=== PATIENT | male | born 1975 | race Caucasian/White ===

== ENCOUNTER 2018-06-12 04:17 | Emergency (ER) | payer SELFPAY ==
[2018-06-12 04:46] LABS: BASO % 0.3 % (0.0-1.0); EOS # 0.2 10^3/uL (0.0-0.50); EOS % 1.9 % (0.0-3.0); HEMATOCRIT 43.6 % (42.0-52.0); IMMATURE GRANULOCYTE % 0.4 % (0-3.0); LYMPH # 2.1 10^3/uL (1.5-4.5); LYMPH % 18.5 % (24.0-44.0); MEAN CORPUSCULAR HEMOGLOBIN 31.6 pg (27.0-33.0); MEAN CORPUSCULAR HGB CONC 34.4 g/dl (32.0-36.5); MEAN CORPUSCULAR VOLUME 91.8 fl (80.0-96.0); MONO # 0.7 10^3/uL (0.0-0.8); MONO % 6.6 % (0.0-5.0); NEUTROPHILS # 8.1 10^3/uL (1.8-7.7); NEUTROPHILS % 72.3 % (36.0-66.0); PLATELET COUNT, AUTOMATED 227 10^3/uL (150-450); RED BLOOD COUNT 4.75 10^6/uL (4.30-6.10); RED CELL DISTRIBUTION WIDTH 13.8 % (11.5-14.5); WHITE BLOOD COUNT 11.2 10^3/uL (4.0-10.0)
[2018-06-12] MEDS: NS 1,000 ML IV ×3 (04:46→05:53)
[2018-06-12] MEDS: HYDROMORPHONE HCL 0.5 MG/ 0.5 ML SYRINGE (J1170 PER 1) IV ×2 (04:47→05:53)
[2018-06-12 05:07] LABS: ALBUMIN 3.7 GM/DL (3.2-5.2); ALBUMIN/GLOBULIN RATIO 1.16 (1.00-1.93); ALKALINE PHOSPHATASE 64 U/L (45-117); ALT/SGPT 24 U/L (12-78); ANION GAP 8 MEQ/L (8-16); AST/SGOT 22 U/L (7-37); BILIRUBIN,DIRECT < 0.1 MG/DL (0.0-0.2); BILIRUBIN,TOTAL 0.3 MG/DL (0.2-1.0); BLOOD UREA NITROGEN 14 MG/DL (7-18); CALCIUM LEVEL 8.8 MG/DL (8.5-10.1); CARBON DIOXIDE LEVEL 25 MEQ/L (21-32); CHLORIDE LEVEL 109 MEQ/L (98-107); CREATININE FOR GFR 1.49 MG/DL (0.70-1.30); GLOMERULAR FILTRATION RATE 54.5 (>60); GLUCOSE, FASTING 134 MG/DL (70-100); LIPASE 157 U/L (73-393); POTASSIUM SERUM 4.3 MEQ/L (3.5-5.1); SODIUM LEVEL 142 MEQ/L (136-145); TOTAL PROTEIN 6.9 GM/DL (6.4-8.2)
[2018-06-12] MEDS: TAMSULOSIN 0.4 MG CAP PO (05:30)
[2018-06-12 05:56] LABS: APPEARANCE, URINE CLEAR (CLEAR); BACTERIA, URINE AUTO NEGATIVE (NEGATIVE); BILIRUBIN, URINE AUTO NEGATIVE (NEGATIVE); BLOOD, URINE BLOOD 3+ (NEGATIVE); COLOR, URINE YELLOW (YELLOW); GLUCOSE, URINE (UA) AUTO NEGATIVE (NEGATIVE); KETONE, URINE AUTO NEGATIVE (NEGATIVE); LEUKOCYTE ESTERASE, URINE AUTO NEGATIVE (NEGATIVE); MUCUS, URINE SMALL (NEGATIVE); NITRITE, URINE AUTO NEGATIVE (NEGATIVE); PROTEIN, URINE AUTO 1+ mg/dL (NEGATIVE); RBC, URINE AUTO 172 /HPF (0-3); SPECIFIC GRAVITY URINE AUTO 1.014 (1.002-1.035); SQUAMOUS EPITHELIAL CELL UR AU 0 /HPF (0-6); UROBILINOGEN, URINE AUTO 0.2 mg/dL (0.0-2.0); WBC, URINE AUTO 2 /HPF (0-3)
[2018-06-12] MEDS: NORCO 5/325MG TABLET (BULK FOR ED) PO (08:00)
== END 2018-06-12 08:00 | disposition home or self-care (01) ==
LOC: M ED 04:17
DX: N20.1 Calculus of ureter (principal); I10 Essential (primary) hypertension; M19.90 Unspecified osteoarthritis, unspecified site; F17.200 Nicotine dependence, unspecified, uncomplicated; Z79.899 Other long term (current) drug therapy
CPT/HCPCS: J1170

== ENCOUNTER → 2021-08-12 | Outpatient (CLI) | payer SELFPAY ==
[~2021-08-12] MED LIST: ISOVUE-300 61% 50ML VIAL As Ordered ONE; LEVO100T5 PO; LIDOCAINE 1% MDV 20ML VIAL As Ordered ONE; LOSA50TA88 PO; TRAM100T21 PO; TRIAMCINOLONE ACETONIDE SUSP 40 MG/ML VIAL (J3301) As Ordered ONE
--- NOTE | 2021-08-12 15:15 | REP ---
INDICATION: RT SHOULDER OA W/PAIN. COMPARISON: None TECHNIQUE: The procedure was performed by ANASTASIYA Rodrigues, under the direct supervision of Dr. Reilly. The benefits and risks of the procedure were explained to the patient, and an informed consent was obtained. Directly prior to the start of the procedure, a formal time-out was completed in the procedure room. The right glenohumeral joint space was localized using fluoroscopic guidance. The skin was prepped and draped in a sterile fashion. Approximately 5 mL of 1% Lidocaine 10 mg/ml was used as a local anesthetic. Using fluoroscopic guidance, a #22 gauge spinal needle was inserted and advanced into the right glenohumeral joint space. Approximately 1 mL of Isovue 300 was injected to verify placement. Six mL of a solution containing 5 mL 1% lidocaine 10 mg/ml and 1 mL Kenalog 40 milligrams/milliliter was injected into the joint space. The needle was removed and hemostasis was achieved. FINDINGS: The patient tolerated the procedure well and there were no immediate complications. IMPRESSION: 1. Fluoroscopically guided right shoulder pain injection. 0.1 minutes of fluoroscopy time was utilized for this procedure. Some fluoroscopic images are performed with last image hold technology. These images require no additional radiation. <Electronically signed by Rachael Tran > 08/12/21 1228 <Electronically signed by Yonathan Reilly > 08/12/21 [id number]
== END ==
LOC: M RADPRO 10:25
PROVIDERS: ATTEND Physician Assistant
DX: M19.011 Primary osteoarthritis, right shoulder (principal)
CPT/HCPCS: 20610; 77002; J3301; Q9967

== ENCOUNTER 2021-09-13 12:46 | Emergency (ER) | payer SELFPAY ==
[~2021-09-13] VITALS: Ht 185.4 cm; Wt 96.9 kg
[~2021-09-13 12:46] MED LIST changes: -ISOVUE-300 61% 50ML VIAL As Ordered ONE; -LIDOCAINE 1% MDV 20ML VIAL As Ordered ONE; -TRIAMCINOLONE ACETONIDE SUSP 40 MG/ML VIAL (J3301) As Ordered ONE
--- OUTSIDE RECORDS SUMMARY | 2021-09-13 12:53 | CCD | Continuity of Care Document ---
Author Author Lloyd POLLARD ME Organization Unknown Address [address] [place] [address] [place] [address] Phone [phone] Care Team Providers Care Sales Director Name Role Phone Francisco Davies MD [facility] [phone] Problems Description No Information Available Social History Type Date Description Comments Sex Unknown ETOH Use Occasionally consumes alcohol Tobacco Use Start: Unknown Patient is a current smoker, smo kes every day Smoking Status Reviewed: 07/12/21 Patient is a current smoker, smokes every day Allergies, Adverse Reactions, Alerts Active Allergies Criticality Reaction | Severity Comments Date Cefdinir Unable to assess criticality itching 07/12/2021 Inactive Allergies NKDA Unable to assess criticality 07/15/2018 Medications Active Medications SIG Qnty Indications Ordering Provide r Date Tramadol HCL 50mg Tablets four times a day Unknown Levothyroxine-Liothyronine 100mg T ablets Unknown Losartan Potassium 100mg Tablets Unknown Pantoprazole Sodium 40mg Tablets D R 1 by mouth every day Unknown Metoprolol Succinate ER 50mg Tablets ER 24HR twice a day Unknown Immunizations Description No Information Available Vital Signs Date Vital Result Comment 07/12/2021 5:17pm BP Systolic 221 mmHg BP Diastolic 143 mmHg Heart Rate 69 /min Respiratory Rate 20 /min O2 % BldC Oximetry 98 % Body Temperature 98.8 F Weight 210.00 lb Height 73 inches 6'1" BMI (Body Mass Index) 27.7 kg/m2 Pain Level 2 09/24/2019 4:25pm BP Systolic 184 mmHg BP Diastolic 141 mmHg Heart Rate 111 /min O2 % BldC Oximetry 97 % Body Temperature 99.1 F Weight 205.00 lb Height 73 inches 6'1" BMI (Body Mass Index) 27.0 kg/m2 Pain Level 4 Results Description No Information Available Procedures Date Code Description Status 07/12/2021 16175 Office/Outpatient Established Lo w MDM 20-29 Min Completed Medical Devices Description No Information Available Encounters Type Date Location Provider Dx Diagnosis Office Visit 07/12/2021 4:40p Main Office [facility] K12.2 Cellulitis and abscess of mouth I10 Essential (primary) hyperten david Assessments Date Code Description Provider 07/12/2021 K12.2 Cellulitis and abscess of mouth [facility] 07/12/2021 I10 Essential (primary) hypertension [facility] 04/01/2021 Z20.828 Contact with and (alejandro spected) exposure to other viral communicable diseases [facility] Plan of Treatment No Information Available Functional Status Description No Information Available Mental Status Description No Information Available Referrals Description No Information Available
--- OUTSIDE RECORDS SUMMARY | 2021-09-13 12:53 | CCD ---
Author Author [facility] Organization [facility] Address Unknown Phone Unavailable Care Team Providers Care Ship Carpenter Name Role Phone MCELHERAN, PADDY PA Unavailable Unavailable MCELHERAN, PADDY PA Unavailable Unavailable MCELHERAN, PADDY PA Unavailable Unavailable MCELHERAN, PADDY PA Unavailable Unavailable MCELHERAN, PADDY PA Unavailable Unavailable MCELHERAN, PADDY PA Unavailable Unavailable MCELHERAN, PADDY PA Unavailable Unavailable MCELHERAN, PADDY PA Unavailable Unavailable MCELHERAN, PADDY PA Unavailable Unavailable MCELHERAN, PADDY PA Unavailable Unavailable MCELHERAN, PADDY PA Unavailable Unavailable MCELHERAN, PADDY PA Unavailable Unavailable MCELHERAN, PADDY PA Unavailable Unavailable MCELHERAN, PADDY PA Unavailable Unavailable MCELHERAN, PADDY PA Unavailable Unavailable MCELHERAN, PADDY PA Unavailable Unavailable MCELHERAN, PADDY PA Unavailable Unavailable MCELHERAN, PADDY PA Unavailable Unavailable MCELAN, PADDY PA Unavailable Unavailable MCELHERAN, PADDY PA Unavailable Unavailable MCELHERAN, PADDY PA Unavailable Unavailable MCELHERAN, PADDY PA Unavailable Unavailable MCELHERAN, PADDY PA Unavailable Unavailable MCELHERAN, PADDY PA Unavailable Unavailable MCELHERAN, PADDY PA Unavailable Unavailable MCELHERAN, PADDY PA Unavailable Unavailable MCELHERAN, PADDY PA Unavailable Unavailable MCELAN, PADDY PA Unavailable Unavailable MCELHERAN, PADDY PA Unavailable Unavailable MCELHERAN, PADDY PA Unavailable Unavailable MCELHERAN, PADDY PA Unavailable Unavailable MCELHERAN, PADDY PA Unavailable Unavailable MCELHERAN, PADDY PA Unavailable Unavailable MCELHERAN, PADDY PA Unavailable Unavailable MCELHERAN, PADDY PA Unavailable Unavailable MCELHERAN, PADDY PA Unavailable Unavailable MCELHERAN, PADDY PA Unavailable Unavailable MCELHERAN, PADDY PA Unavailable Unavailable MCELHERAN, PADDY PA Unavailable Unavailable MCELHERAN, PADDY PA Unavailable Unavailable MCELHERAN, PADDY PA Unavailable Unavailable MCELHERAN, PADDY PA Unavailable Unavailable MCELHERAN, PADDY PA Unavailable Unavailable MCELHERAN, PADDY PA Unavailable Unavailable MCELHERAN, PADDY PA Unavailable Unavailable MCELHERAN, PADDY PA Unavailable Unavailable MCELHERAN, PADDY PA Unavailable Unavailable MCELHERAN, PADDY PA Unavailable Unavailable MCELHERAN, PADDY PA Unavailable Unavailable MCELHERAN, PADDY PA Unavailable Unavailable MCELHERAN, PADDY PA Unavailable Unavailable MCELHERAN, PADDY PA Unavailable Unavailable MCELHERAN, PADDY PA Unavailable Unavailable MCELHERAN, PADDY PA Unavailable Unavailable MCELHERAN, PADDY PA Unavailable Unavailable MCELHERAN, PADDY PA Unavailable Unavailable MCELHERAN, PADDY PA Unavailable Unavailable MCELHERAN, PADDY PA Unavailable Unavailable Ernie Davies MD Unavailable Unavailable Ernie Davies MD Unavailable Unavailable Ernie Davies MD Unavailable Unavailable Ernie Davies MD Unavailable Unavailable Ernie Davies MD Unavailable Unavailable Ernie Davies MD Unavailable Unavailable Ernie Davies MD Unavailable Unavailable Ernie Davies MD Unavailable Unavailable Ernie Davies MD Unavailable Unavailable Ernie Davies MD Unavailable Unavailable Ernie Davies MD Unavailable Unavailable Ernie Davies MD Unavailable Unavailable Ernie Davies MD Unavailable Unavailable Ernie Davies MD Unavailable Unavailable Ernie Davies MD Unavailable Unavailable Ernie Davies MD Unavailable Unavailable Ernie Davies MD Unavailable Unavailable Ernie Davies MD Unavailable Unavailable Ernie Davies MD Unavailable Unavailable Ernie Davies MD Unavailable Unavailable Ernie Davies MD Unavailable Unavailable Ernie Davies MD Unavailable Unavailable Ernie Davies MD Unavailable Unavailable Ernie Davies MD Unavailable Unavailable Ernie Davies MD Unavailable Unavailable Davies, Felecia Moid MD Unavailable Unavailable Davies, Felecia Moid MD Unavailable Unavailable Davies, Felecia Moid MD Unavailable Unavailable Davies, Felecia Moid MD Unavailable Unavailable DaviesIliaul Moid MD Unavailable Unavailable Davies Felecia Moid MD Unavailable Unavailable Davies Felecia Moid MD Unavailable Unavailable Davies, Felecia Moid MD Unavailable Unavailable Davies, Felecia Moid MD Unavailable Unavailable Davies, Felecia Moid MD Unavailable Unavailable Davies Felecia Moid MD Unavailable Unavailable Davies, Felecia Moid MD Unavailable Unavailable Davies, Felecia Moid MD Unavailable Unavailable Davies, Felecia Moid MD Unavailable Unavailable Davies Felecia Moid MD Unavailable Unavailable Davies, Felecia Moid MD Unavailable Unavailable Daives, Felecia Moid MD Unavailable Unavailable Keke Felecia Moid MD Unavailable Unavailable Ilia Daviesul Moid MD Unavailable Unavailable Davies, Felecia Moid MD Unavailable Unavailable Davies, Felecia Moid MD Unavailable Unavailable Davies, Felecia Moid MD Unavailable Unavailable Davies, Felecia Moid MD Unavailable Unavailable Davies, Felecia Moid MD Unavailable Unavailable Ilia Daviesul Moid MD Unavailable Unavailable Davies, Felecia Moid MD Unavailable Unavailable Davies, Felecia Moid MD Unavailable Unavailable Davies, Felecia Moid MD Unavailable Unavailable Davies, Felecia Moid MD Unavailable Unavailable Felecia Davies Moid MD Unavailable Unavailable Felecia Davies Moid MD Unavailable Unavailable Keke Felecia Moid MD Unavailable Unavailable Davies, Felecia Moid MD Unavailable Unavailable Davies, Felecia Moid MD Unavailable Unavailable Davies, Felecia Moid MD Unavailable Unavailable Ilia Daviesul Moid MD Unavailable Unavailable Davies, Felecia Moid MD Unavailable Unavailable Davies, Felecia Moid MD Unavailable Unavailable Davies, Felecia Moid MD Unavailable Unavailable Davies, Felecia Moid MD Unavailable Unavailable Davies, Felecia Moid MD Unavailable Unavailable Davies, Felecia Moid MD Unavailable Unavailable Davies, Felecia Moid MD Unavailable Unavailable RING, K REMI PA Unavailable Unavailable RING, K REMI PA Unavailable Unavailable RING, K REMI PA Unavailable Unavailable RING, K REMI PA Unavailable Unavailable RING, K REMI PA Unavailable Unavailable RING, K REMI PA Unavailable Unavailable RING, K REMI PA Unavailable Unavailable RING, K REMI PA Unavailable Unavailable RING, K REMI PA Unavailable Unavailable RING, K REMI PA Unavailable Unavailable RING, K REMI PA Unavailable Unavailable RING, K REMI PA Unavailable Unavailable RING, K REMI PA Unavailable Unavailable RING, K REMI PA Unavailable Unavailable RING, K REMI PA Unavailable Unavailable RING, K REMI PA Unavailable Unavailable RING, K REMI PA Unavailable Unavailable RING, K REMI PA Unavailable Unavailable RING, K REMI PA Unavailable Unavailable RING, K REMI PA Unavailable Unavailable RING, K REMI PA Unavailable Unavailable Re-disclosure Warning The records that you are about to access may contain information from federally-assisted alcohol or drug abuse programs. If such information is present, then the following federally mandated warning applies: This information has been disclosed to you from records protected by federal confidentiality rules (42 CFR part 2). The federal rules prohibit you from making any further disclosure of this information unless further disclosure is expressly permitted by the written consent of the person to whom it pertains or as otherwise permitted by 42 CFR part 2. A general authorization for the release of medical or other information is NOT sufficient for this purpose. The Federal rules restrict any use of the information to criminally investigate or prosecute any alcohol or drug abuse patient.The records that you are about to access may contain highly sensitive health information, the redisclosure of which is protected by Article 27-F of the [place] State Public Health law. If you continue you may have access to information: Regarding HIV / AIDS; Provided by facilities licensed or operated by the [facility] Office of Mental Health; or Provided by the [facility] Office for People With Developmental Disabilities. If such information is present, then the following [facility] mandated warning applies: This information has been disclosed to you from confidential records which are protected by state law. State law prohibits you from making any further disclosure of this information without the specific written consent of the person to whom it pertains, or as otherwise permitted by law. Any unauthorized further disclosure in violation of state law may result in a fine or detention sentence or both. A general authorization for the release of medical or other information is NOT sufficient authorization for further disc losure. Allergies and Adverse Reactions Type Description Substance Reaction Status Data Source(s ) Drug Allergy Drug Allergy NKDA [facility] ([facility]) Family History Family Member Name Family Member Gender Family Member Status Date o f Status Description Data Source(s) Unknown Female Problem [facility] ([facility]) Unknown Unknown Encounters Encounter Providers Location Date Indications Data Source(s ) Outpatient Attender: REMI Manning Primary 07/12/2021 04:40:00 PM EDT [facility] ([facility]) Outpatient 04/01/2021 04:57:40 PM EDT [facility] ([facility]) Outpatient Attender: PADDY MAXWELL Physical Therapy 03/25/2021 09:15:00 AM EDT [facility] ([facility]) Outpatient Attender: PADDY MAXWELL Physical Therapy 12/17/2020 03:00:00 PM EST [facility] ([facility]) OFFICE OUTPATIENT VISIT 15 MINUTES Attender: PADDY MAXWELL Physical Therapy 07/29/2020 02:30:00 PM EDT [facility] ([facility]) Outpatient Attender: PADDY PANG PAConsultant: Francicso bill MD 07/25/2020 08:55:00 AM EDT - 07/25/2020 09:55:00 AM EDT [facility] Medications Medication Brand Name Start Date Product Form Dose Route Admi nistrative Instructions Pharmacy Instructions Status Indications Reaction Description Data Source(s) 50 mg 09/08/2021 12:00:00 AM EDT tablet 120 TAKE ONE TABLET BY MOUTH FOUR TIMES A DAY MAXIMUM DAILY DOSE = 4 TAKE ONE TABLET BY MOUTH FOUR TIMES A DA Y MAXIMUM DAILY DOSE = 4 SOLD: 09/08/2021 [facility] 100 mg 09/08/2021 12:00:00 AM EDT tablet extended release 24 hr 30 TAKE ONE TABLET BY MOUTH EVERY DAY TAKE ONE TABLET BY MOUTH EVERY DAY SOLD: 09/08/2021 [facility] 500 mg 09/08/2021 12:00:00 AM EDT capsule 40 TAKE ONE CAPSULE BY MOUTH FOUR TIMES A DAY TAKE ONE CAPSULE BY MOUTH FOUR TIMES A DAY SOLD: 09/08/2021 [facility] 10 mg 09/08/2021 12:00:00 AM EDT tablet 30 TAKE ONE TABLET BY MOUTH AT BEDTIME MAXIMUM DAILY DOSE = 1 TAKE ONE TABLET BY MOUTH AT BEDTIME MAXI MUM DAILY DOSE = 1 SOLD: 09/08/2021 [facility] 100 mg 08/11/2021 12:00:00 AM EDT tablet extended release 24 hr 30 TAKE ONE TABLET BY MOUTH EVERY DAY TAKE ONE TABLET BY MOUTH EVERY DAY SOLD: 08/11/2021 [facility] 50 mg 08/10/2021 12:00:00 AM EDT tablet 120 TAKE ONE TABLET BY MOUTH FOUR TIMES A DAY MAXIMUM DAILY DOSE = 4 TABLETS TAKE ONE TABLET BY MOUTH FOUR TIMES A DAY MAXIMUM DAILY DOSE = 4 TABLETS SOLD: 08/10/2021 [facility] 100 mg 08/10/2021 12:00:00 AM EDT tablet 90 TAKE ONE TABLET BY MOUTH EVERY DAY TAKE ONE TABLET BY MOUTH EVERY DAY SOLD: 08/10/2021 [facility] 10 mg 08/10/2021 12:00:00 AM EDT tablet 30 TAKE ONE TABLET BY MOUTH AT BEDTIME MAXIMUM DAILY DOSE = 1 TABLET TAKE ONE TABLET BY MOUTH AT BEDTIME MAXIMUM DAILY DOSE = 1 TABLET SOLD: 08/10/2021 [facility] 500 mg 08/10/2021 12:00:00 AM EDT capsule 40 TAKE ONE CAPSULE BY MOUTH FOUR TIMES A DAY TAKE ONE CAPSULE BY MOUTH FOUR TIMES A DAY SOLD: 08/10/2021 [facility] 875 mg 07/13/2021 12:00:00 AM EDT tablet 20 TAKE ONE TABLET BY MOUTH EVERY 12 HOURS FOR 10 DAYS TAKE ONE TABLET BY MOUTH EVERY 12 HOURS FOR 10 DAYS SO LD: 07/13/2021 [facility] 125 mcg 07/08/2021 12:00:00 AM EDT tablet 90 TAKE ONE TABLET BY MOUTH EVERY DAY TAKE ONE TABLET BY MOUTH EVERY DAY SOLD: 07/10/2021 [facility] 10 mg 07/08/2021 12:00:00 AM EDT tablet 30 TAKE ONE TABLET BY MOUTH EVERY DAY AT BEDTIME MAXIMUM DAILY DOSE = 1 TAKE ONE TABLET BY MOUTH EVERY DAY AT BEDTIME MAXIMUM DAILY DOSE = 1 SOLD: 07/10/2021 [facility] 50 mg 07/08/2021 12:00:00 AM EDT tablet 120 TAKE ONE TABLET BY MOUTH FOUR TIMES A DAY MAXIMUM DAILY DOSE = 4 TAKE ONE TABLET BY MOUTH FOUR TIMES A DA Y MAXIMUM DAILY DOSE = 4 SOLD: 07/10/2021 [facility] 100 mg 07/08/2021 12:00:00 AM EDT tablet 90 TAKE ONE TABLET BY MOUTH EVERY DAY TAKE ONE TABLET BY MOUTH EVERY DAY SOLD: 07/10/2021 [facility] 12.5 mg 06/08/2021 12:00:00 AM EDT tablet 90 TAKE ONE TABLET BY MOUTH THREE TIMES A DAY TAKE ONE TABLET BY MOUTH THREE TIMES A DAY SOLD: 06/08/2021 [facility] 50 mg 06/08/2021 12:00:00 AM EDT tablet 120 TAKE ONE TABLET BY MOUTH FOUR TIMES A DAY MAXIMUM DAILY DOSE = 4 TAKE ONE TABLET BY MOUTH FOUR TIMES A DA Y MAXIMUM DAILY DOSE = 4 SOLD: 06/08/2021 [facility] 10 mg 06/08/2021 12:00:00 AM EDT tablet 30 TAKE ONE TABLET BY MOUTH AT BEDTIME MAXIMUM DAILY DOSE = 1 TAKE ONE TABLET BY MOUTH AT BEDTIME MAXI MUM DAILY DOSE = 1 SOLD: 06/08/2021 [facility] 50 mg 05/09/2021 12:00:00 AM EDT tablet 120 TAKE ONE TABLET BY MOUTH FOUR TIMES A DAY MAXIMUM DAILY DOSE = 4 TAKE ONE TABLET BY MOUTH FOUR TIMES A DA Y MAXIMUM DAILY DOSE = 4 SOLD: 05/09/2021 [facility] 10 mg 05/08/2021 12:00:00 AM EDT tablet 30 TAKE 1 TABLET BY MOUTH AT BEDTIME MAXIMUM DAILY DOSE = 1` TAKE 1 TABLET BY MOUTH AT BEDTIME MAXIMU M DAILY DOSE = 1` SOLD: 05/09/2021 [facility] 12.5 mg 05/08/2021 12:00:00 AM EDT tablet 90 TAKE ONE TABLET BY MOUTH THREE TIMES A DAY TAKE ONE TABLET BY MOUTH THREE TIMES A DAY SOLD: 05/09/2021 [facility] 10 mg 04/13/2021 12:00:00 AM EDT tablet 27 TAKE 1 TABLET BY MOUTH AT BEDTIME MAXIMUM DAILY DOSE = 1 TAKE 1 TABLET BY MOUTH AT BEDTIME MAXIMUM DAILY DOSE = 1 SOLD: 04/13/2021 [facility] 50 mg 04/09/2021 12:00:00 AM EDT tablet 108 TAKE ONE TABLET BY MOUTH FOUR TIMES A DAY, MAXIMUM DAILY DOSE = 4 TAKE ONE TABLET BY MOUTH FOUR TIMES A DA Y, MAXIMUM DAILY DOSE = 4 SOLD: 04/13/2021 [facility] 10 mg 04/02/2021 12:00:00 AM EDT tablet 3 TAKE ONE TABLET BY MOUTH AT BEDTIME, MAXIMUM DAILY DOSE = 1 TAKE ONE TABLET BY MOUTH AT BEDTIME, MAX IMUM DAILY DOSE = 1 SOLD: 04/02/[address] [facility] 50 mg 04/02/2021 12:00:00 AM EDT tablet 12 TAKE ONE TABLET BY MOUTH FOUR TIMES A DAY, MAXIMUM DAILY DOSE = 4 TAKE ONE TABLET BY MOUTH FOUR TIMES A DA Y, MAXIMUM DAILY DOSE = 4 SOLD: 04/02/2021 [facility] 100 mg 04/02/2021 12:00:00 AM EDT tablet 90 TAKE ONE TABLET BY MOUTH EVERY DAY TAKE ONE TABLET BY MOUTH EVERY DAY SOLD: 04/02/2021 [facility] 10 mg 03/11/2021 12:00:00 AM EDT tablet 30 TAKE ONE TABLET BY MOUTH EVERY DAY AT BEDTIME MAXIMUM DAILY DOSE = 1 TAKE ONE TABLET BY MOUTH EVERY DAY AT BEDTIME MAXIMUM DAILY DOSE = 1 SOLD: 03/11/2021 [facility] 50 mg 03/11/2021 12:00:00 AM EDT tablet 120 TAKE ONE TABLET BY MOUTH FOUR TIMES A DAY MAXIMUM DAILY DOSE = 4 TAKE ONE TABLET BY MOUTH FOUR TIMES A DA Y MAXIMUM DAILY DOSE = 4 SOLD: 03/11/2021 [facility] 10 mg 02/10/2021 12:00:00 AM EDT tablet 30 TAKE ONE TABLET BY MOUTH AT BEDTIME MAXIMUM DAILY DOSE = 1 TABLET TAKE ONE TABLET BY MOUTH AT BEDTIME MAXIMUM DAILY DOSE = 1 TABLET SOLD: 02/10/2021 [facility] 50 mg 02/10/2021 12:00:00 AM EDT tablet 120 TAKE ONE TABLET BY MOUTH FOUR TIMES A DAY MAXIMUM DAILY DOSE = 4 TAKE ONE TABLET BY MOUTH FOUR TIMES A DA Y MAXIMUM DAILY DOSE = 4 SOLD: 02/10/2021 [facility] 25 mg 02/09/2021 12:00:00 AM EDT tablet 180 TAKE ONE TABLET BY MOUTH TWICE A DAY TAKE ONE TABLET BY MOUTH TWICE A DAY SOLD: 02/09/2021 [facility] pantoprazole 40 MG Delayed Release Oral Tablet PANTOPRAZOLE SODIUM 02/09/2021 12:00:00 AM EDT tablet,delayed release (DR/EC) 90 T HEIDI ONE TABLET BY MOUTH EVERY DAY TAKE ONE TABLET BY MOUTH EVERY DAY SOLD: 02/09/2021 [facility] 5 mg 01/26/2021 12:00:00 AM EDT tablet 10 TAKE ONE TABLET BY MOUTH AT BEDTIME MAXIMUM DAILY DOSE = 1 TAKE ONE TABLET BY MOUTH AT BEDTIME MAXI MUM DAILY DOSE = 1 SOLD: 01/26/2021 [facility] 50 mg 01/12/2021 12:00:00 AM EST tablet 120 TAKE ONE TABLET BY MOUTH FOUR TIMES A DAY MAXIMUM DAILY DOSE = 4 TAKE ONE TABLET BY MOUTH FOUR TIMES A DA Y MAXIMUM DAILY DOSE = 4 SOLD: 01/12/2021 [facility] 100 mg 01/12/2021 12:00:00 AM EST tablet 90 TAKE ONE TABLET BY MOUTH EVERY DAY TAKE ONE TABLET BY MOUTH EVERY DAY SOLD: 01/12/2021 [facility] pantoprazole 40 MG Delayed Release Oral Tablet PANTOPRAZOLE SODIUM 01/12/2021 12:00:00 AM EST tablet,delayed release (DR/EC) 90 T HEIDI ONE TABLET BY MOUTH EVERY DAY TAKE ONE TABLET BY MOUTH EVERY DAY SOLD: 01/12/2021 [facility] 50 mg 12/12/2020 12:00:00 AM EST tablet 120 TAKE ONE TABLET BY MOUTH FOUR TIMES A DAY MAXIMUM DAILY DOSE = 4 TABLETS TAKE ONE TABLET BY MOUTH FOUR TIMES A DAY MAXIMUM DAILY DOSE = 4 TABLETS SOLD: 12/14/2020 [facility] 50 mg 11/13/2020 12:00:00 AM EST tablet 120 TAKE ONE TABLET BY MOUTH FOUR TIMES DAY MAXIMUM DAILY DOSE =4 TABLETS TAKE ONE TABLET BY MOUTH FOUR TIMES DAY MAXIMUM DAILY DOSE =4 TABLETS SOLD: 11/13/2020 [facility] pantoprazole 40 MG Delayed Release Oral Tablet PANTOPRAZOLE SODIUM 11/13/2020 12:00:00 AM EST tablet,delayed release (DR/EC) 90 T HEIDI ONE TABLET BY MOUTH DAILY TAKE ONE TABLET BY MOUTH DAILY SOLD: 11/13/2020 [facility] 20 mg 11/13/2020 12:00:00 AM EST tablet 90 TAKE ONE TABLET BY MOUTH DAILY TAKE ONE TABLET BY MOUTH DAILY SOLD: 11/13/2020 [facility] 125 mcg 11/13/2020 12:00:00 AM EST tablet 90 TAKE ONE TABLET BY MOUTH DAILY TAKE ONE TABLET BY MOUTH DAILY SOLD: 11/13/2020 [facility] 100 mg 10/13/2020 12:00:00 AM EST tablet 90 TAKE ONE TABLET BY MOUTH EVERY DAY TAKE ONE TABLET BY MOUTH EVERY DAY SOLD: 10/13/2020 [facility] 50 mg 10/13/2020 12:00:00 AM EST tablet 120 TAKE ONE TABLET BY MOUTH FOUR TIMES A DAY MAXIMUM DAILY DOSE = 4 TAKE ONE TABLET BY MOUTH FOUR TIMES A DA Y MAXIMUM DAILY DOSE = 4 SOLD: 10/13/2020 [facility] pantoprazole 40 MG Delayed Release Oral Tablet PANTOPRAZOLE SODIUM 10/13/2020 12:00:00 AM EST tablet,delayed release (DR/EC) 90 T HEIDI ONE TABLET BY MOUTH EVERY DAY TAKE ONE TABLET BY MOUTH EVERY DAY SOLD: 10/13/2020 [facility] 125 mcg 10/13/2020 12:00:00 AM EST tablet 90 TAKE ONE TABLET BY MOUTH EVERY DAY TAKE ONE TABLET BY MOUTH EVERY DAY SOLD: 10/13/2020 [facility] 50 mg 09/08/2020 12:00:00 AM EDT tablet 120 TAKE ONE TABLET BY MOUTH FOUR TIMES A DAY MAXIMUM DAILY DOSE = 4 TAKE ONE TABLET BY MOUTH FOUR TIMES A DA Y MAXIMUM DAILY DOSE = 4 SOLD: 09/08/2020 [facility] 125 mcg 09/08/2020 12:00:00 AM EDT tablet 90 TAKE ONE TABLET BY MOUTH EVERY DAY TAKE ONE TABLET BY MOUTH EVERY DAY SOLD: 09/08/2020 [facility] 100 mg 09/08/2020 12:00:00 AM EDT tablet 90 TAKE ONE TABLET BY MOUTH EVERY DAY TAKE ONE TABLET BY MOUTH EVERY DAY SOLD: 09/08/2020 [facility] 50 mg 08/12/2020 12:00:00 AM EDT tablet 120 TAKE ONE TABLET BY MOUTH FOUR TIMES A DAY MAXIMUM DAILY DOSE = 4 TAKE ONE TABLET BY MOUTH FOUR TIMES A DA Y MAXIMUM DAILY DOSE = 4 SOLD: 08/14/2020 [facility] 25 mg 08/11/2020 12:00:00 AM EDT tablet 180 TAKE ONE TABLET BY MOUTH TWICE A DAY TAKE ONE TABLET BY MOUTH TWICE A DAY SOLD: 08/14/2020 [facility] 20 mg 08/11/2020 12:00:00 AM EDT tablet 90 TAKE ONE TABLET BY MOUTH EVERY DAY TAKE ONE TABLET BY MOUTH EVERY DAY SOLD: 08/14/2020 [facility] 40 mg 07/14/2020 12:00:00 AM EDT tablet,delayed release (DR/EC) 90 TAKE ONE TABLET BY MOUTH EVERY DAY TAKE ONE TABLET BY MOUTH EVERY DAY SOLD: 07/14/2020 [facility] 50 mg 07/14/2020 12:00:00 AM EDT tablet 120 TAKE ONE TABLET BY MOUTH FOUR TIMES A DAY MAXIMUM DAILY DOSE = 4 TAKE ONE TABLET BY MOUTH FOUR TIMES A DA Y MAXIMUM DAILY DOSE = 4 SOLD: 07/14/2020 [facility] Insurance Providers Payer name Policy type / Coverage type Policy ID Covered republican ID Covered republican's relationship to nicole Policy Nicole Plan Information SELF PAY ONLY [id number] SELF PAY O UNAVAILABLE [id number] S UNAVAILA BLE O UNAVAILABLE UNAVAILA BLE Problems, Conditions, and Diagnoses Code Display Name Description Problem Type Effective Dates Data Source(s) M4317 Spondylolisthesis, lumbosacral region Sp ondylolisthesis, lumbosacral region Diagnosis 07/25/2020 08:55:00 AM EDT [facility] 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, lumbar region Other intervertebral disc displacement, lumbar region Diagnosis 07/25/2020 08:55:00 AM EDT [facility] M5136 Other intervertebral disc degeneration, lumbar region Other intervertebral disc degeneration, lumbar region Diagnosis 07/25/2020 08:55:00 AM EDT [facility] Surgeries/Procedures Procedure Description Date Indications Data Source(s) OFFICE OUTPATIENT VISIT 15 MINUTES 07/12/2021 12:00:00 AM EDT [facility] ([facility]) ARTHROCENTESIS ASPIR&/INJECTION MAJOR JT/BURSA 021 12:00:00 AM EDT [facility] ([facility]) ARTHROCENTESIS ASPIR&/INJECTION MAJOR JT/BURSA 021 12:00:00 AM EST [facility] ([facility]) Results ID Date Data Source [id number] 04/01/2021 12:00:00 AM EDT [facility] Name Value Range Interpretation Code Description Data Sandee rce(s) Supporting Document(s) SARS-CoV2 Rapid Antigen Negative [facility] This lab was reported by [facility]. ID Date Data Source [id number] 09/15/2020 02:10:00 PM EST [facility] Name Value Range Interpretation Code Description Data Sandee rce(s) Supporting Document(s) SARS-COV-2 RNA RESP QL GEOVANY+PROBE [facility] This lab was ordered by [facility] and reported by [facility]. ID Date Data Source [id number] 07/28/2020 09:23:00 AM EDT [facility] [address] [place] [address] PHONE: [phone] FAX: [phone] Name .................. : BERENICE DAVID Acct Number.................. : [id number] ROOM. ................. : MR Number ................... : [id number] Stay type ............. : O/P Discharge Date......... ... : 07/25/20 Admit Date ....... .. : 07/25/20 Admit Phys .................... : POLY Date of ....... : 1975 Family Phys ................... : KEKE ELLISAmos Phone .................. : [phone] Age ................................ : 44 Film# .................. .:[id number] Sex ................................. : M Unsigned transcriptions are preliminary reports and do not represent a medical or legal document MRI LUMBAR SPINE W/O CONTRAST [id number] COMPLETE:07/25/20 12:11 [facility] [id number] (SPINE PROC REASON: R/O HNP AND STENOSIS MRI OF THE LUMBAR SPINE WITHOUT CONTRAST: FINDINGS: No fracture or dislocation is identified. There is some moderate to severe spurring present at L4 with mild spurring at the rest of the lumbar spine. Decreased T2 signal intensity is noted at the discs from disc dessication. There is mild disc space narrowing at T12- L1. The conus medullaris is unremarkable, terminating at L1. At L3-4, there is some mild to moderate posterior spurring. A small disc bulge is present without canal stenosis. There is mild bilateral neuroforaminal narrowing due to spurring and disc disease. At L4-5, there is mild posterior spurring. There is a small disc bulge present. There is some minimal attenuation of the central AP dimension of the canal without delia canal stenosis. A small focus of increased T2 signal intensity is noted at the disc posteriorly on the left side from an annular tear. There is mild to moderate bilateral neural foraminal narrowing with disc spurring and disc disease. At L5-S1, there is a small disc bulge with an associated central disc protrusion. There is no canal stenosis. There is some minimal neuroforaminal narrowing on the right side due to disc disease and slight spurring. Additionally, there is retrolisthesis of L5 on S1 by about 0.5 cm. Small bilateral facet joint effusions are seen at L1-2 through L5-S1. There is some moderate spurring at the facet joint on the left side and mild on the right side at L4-5 with mild spurring at the facet joints bilaterally at L5-S1. IMPRESSION: No fracture/dislocation. Mild to moderate degenerative disease of the lumbar spine. Disc bulges at L3-4 and L4-5 with bulge and protrusion at L5- S1. No canal stenosis. Neuroforaminal narrowing, as described. Mild retrolisthesis of L5 on S1. Electronically Reviewed and Signed By Page 1 of 2 [facility] [address] [place] [address] PHONE: [phone] FAX: [phone] Name .................. : BERENCIE DAVID Acct Number.................. : [id number] ROOM. ................. : MR Number ................... : [id number] Stay type ............. : O/P Discharge Date......... ... : 07/25/20 Admit Date ......... : 07/25/20 Admit Phys ............ ........ : POLY Date of ....... : 1975 Family Phys ................... : KEKE MYERS Phone .................. : [phone] Age ................................ : 44 Film# .................. .:[id number] Sex ................................. : M Unsigned transcriptions are preliminary reports and do not represent a medical or legal document MRI LUMBAR SPINE W/O CONTRAST [id number] COMPLETE:07/25/20 12:11 [facility] [id number] (SPINE PROC REASON: R/O HNP AND STENOSIS Raheem Reyes MD , 07/28/20 09:23, TDS Transcribe Initials: DZ , Transcribe Date: 07/26/20 01:45, Dictation Date: Copy for: POLY THOMASON via fax Copy for: 710 MED REC Page 2 of 2 Name Value Range Interpretation Code Description Data Sandee rce(s) Supporting Document(s) Procedure Social History No Information Vital Signs ID Date Data Source UNK Name Value Range Interpretation Code Description Data Source(s) Heart rate 69 /min 69 /min [facility] ([facility]) Respiratory rate 20 /min 20 /min [facility] ( [facility]) Oxygen saturation in Arterial blood by Pulse oximetry 98 % 98 % [facility] ([facility]) Body temperature 98.8 [degF] 98.8 [degF] [facility] ([facility], [facility]) Body weight 210.00 [lb_av] 210.00 [lb_av] MEDEN T ([facility], [facility]) Body height 73 [in_i] 73 [in_i] [facility] ([facility]) 6'1" Body mass index (BMI) [Ratio] 27.7 kg/m2 27.7 k g/m2 [facility] ([facility], [facility]) Systolic blood pressure 221 mm[Hg] 221 mm[Hg] [facility]) Diastolic blood pressure 143 mm[Hg] 143 mm[Hg] [facility] ([facility], [facility]) Body temperature 96.1 [degF] 96.1 [degF] [facility] ([facility] )
[2021-09-13] MEDS ORDERED: ADVI200C8 PO (12:55)
[2021-09-13] MEDS ORDERED: ZOLP10TA2 (12:55)
[2021-09-13] MEDS ORDERED: AMOX500C (12:55)
[2021-09-13] MEDS ORDERED: METO1TAB33 (12:55)
--- NOTE | 2021-09-13 13:57 | REP ---
INDICATION: pain,decreased ROM/hx of pain injectins. COMPARISON: None. TECHNIQUE: Three views of the right shoulder were performed. FINDINGS: The acromioclavicular and glenohumeral relationships are within normal limits. There is no acute fracture or destructive osseous lesion. IMPRESSION: No acute osseous abnormality. <Electronically signed by Raad Michaels > 09/13/21 1839
--- OUTSIDE RECORDS SUMMARY | 2021-09-13 15:19 | CCD ---
Author Author [facility] Organization [facility] Address Unknown Phone Unavailable Care Team Providers Care Steel Finisher Name Role Phone MCELHERAN, PADDY PA Unavailable [...] Unavailable Unavailable Ernie Davies MD Unavailable Unavailable Felecia Davies Moid Unavailable Unavailable DaviesFelecia Moid MD Unavailable Unavailable DaviesIliaul Moid MD Unavailable Unavailable DaviesFelecia Moid Unavailable Unavailable DaviesFelecia Moid MD Unavailable Unavailable DaviesFelecia Moid MD Unavailable Unavailable Davies Felecia Moid MD Unavailable Unavailable Davies Felecia Moid MD Unavailable Unavailable Davies, Felecia Moid MD Unavailable Unavailable Davies Felecia Moid MD Unavailable Unavailable Davies, Felecia Moid MD Unavailable Unavailable DaviesIliaul Moid MD Unavailable Unavailable Davies, Felecia Moid MD Unavailable Unavailable DaviesIliaul Moid MD Unavailable Unavailable Davies, Felecia Moid MD Unavailable Unavailable Felecia Davies Moid MD Unavailable Unavailable Felecia Davies Moid MD Unavailable Unavailable Felecia Davies Moid MD Unavailable Unavailable Felecia Davies Moid MD Unavailable Unavailable Felecia Davies Moid MD Unavailable Unavailable Davies, Felecia Moid MD Unavailable Unavailable Felecia Davies Moid MD Unavailable Unavailable Felecia Davies Moid MD Unavailable Unavailable Felecia Davies Moid MD Unavailable Unavailable Davies, Felecia Moid MD Unavailable Unavailable Keke Felecia Moid MD Unavailable Unavailable Davies, Felecia Moid MD Unavailable Unavailable Felecia Davies Moid MD Unavailable Unavailable Felecia Davies Moid MD Unavailable Unavailable Felecia Davies Moid MD Unavailable Unavailable Keke Felecia Moid MD Unavailable Unavailable Felecia Davies Moid MD Unavailable Unavailable Ilia Daviesul Moid MD Unavailable Unavailable Felecia Davies Moid MD Unavailable Unavailable Felecia Davies Moid MD Unavailable Unavailable DaviesIliaul Moid MD Unavailable Unavailable DaviesIliaul Moid MD Unavailable Unavailable Davies, Felecia Moid [...] is protected by Article 27-F of the [facility] Public Health law. If you continue you may have access to information: Regarding HIV / AIDS; Provided by facilities licensed or operated by the [facility] Office of Mental Health; or Provided by the [facility] Office for People With Developmental Disabilities. If such information is present, then the following [facility] mandated warning applies: This information has been [...] law may result in a fine or assisted sentence or both. A general authorization for the release of medical or other information is NOT sufficient authorization for further disc losure. Allergies and Adverse Reactions Type Description Substance Reaction Status Data Source(s ) Drug Allergy Drug Allergy NKDA [facility] ([facility]) Family History Family Member Name Family Member Gender Family Member Status Date o f Status Description Data Source(s) Unknown Female Problem [facility] ([facility]) Unknown Unknown Encounters Encounter Providers Location Date Indications Data Source(s ) Outpatient Attender: REMI Manning Primary 07/12/2021 04:40:00 PM EDT [facility] ([facility]) Outpatient 04/01/2021 04:57:40 PM EDT [facility] ([facility]) Outpatient Attender: PADDY MAXWELL Physical Therapy 03/25/2021 09:15:00 AM EDT [facility] ([facility]) Outpatient Attender: PADDY MAXWELL Physical Therapy 12/17/2020 03:00:00 PM EST [facility] ([facility]) OFFICE OUTPATIENT VISIT 15 MINUTES Attender: PADDY MAXWELL Physical Therapy 07/29/2020 02:30:00 PM EDT [facility] ([facility]) Outpatient Attender: PADDY PANG PAConsultant: Francisco bill MD 07/25/2020 08:55:00 AM EDT - 07/25/2020 09:55:00 AM EDT [facility] Medications Medication Brand Name Start Date Product [...] DAILY DOSE = 4 SOLD: 07/14/2020 [facility] Insurance Providers Payer name Policy type / Coverage type Policy ID Covered green party ID Covered green party's relationship to nicole Policy Nicole Plan Information SELF PAY ONLY [id number] SELF PAY O UNAVAILABLE [id number] S UNAVAILA BLE O UNAVAILABLE UNAVAILA BLE Problems, Conditions, and Diagnoses Code Display Name Description Problem Type Effective Dates Data Source(s) M4317 Spondylolisthesis, lumbosacral region Sp ondylolisthesis, lumbosacral region Diagnosis 07/25/2020 08:55:00 AM EDT [facility] 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, lumbar region Other intervertebral disc displacement, lumbar region Diagnosis 07/25/2020 08:55:00 AM EDT [facility] M5136 Other intervertebral disc degeneration, lumbar region Other intervertebral disc degeneration, lumbar region Diagnosis 07/25/2020 08:55:00 AM EDT [facility] Surgeries/Procedures Procedure Description Date Indications Data Source(s) OFFICE OUTPATIENT VISIT 15 MINUTES 07/12/2021 12:00:00 AM EDT [facility] ([facility]) ARTHROCENTESIS ASPIR&/INJECTION MAJOR JT/BURSA 021 12:00:00 AM EDT [facility] ([facility]) ARTHROCENTESIS ASPIR&/INJECTION MAJOR JT/BURSA 021 12:00:00 AM EST [facility] ([facility]) Results ID Date Data Source [id number] 04/01/2021 12:00:00 AM EDT [facility] Name Value Range Interpretation Code Description Data Sandee rce(s) Supporting Document(s) SARS-CoV2 Rapid Antigen Negative [facility] This lab was reported by [facility]. ID Date Data Source [id number] 09/15/2020 02:10:00 PM EST [facility] Name Value Range Interpretation Code Description Data Sandee rce(s) Supporting Document(s) SARS-COV-2 RNA RESP QL [facility] This lab was ordered by [facility] and reported by [facility]. ID Date Data Source [id number] 07/28/2020 09:23:00 AM EDT [facility] [address] [place] [address] PHONE: [phone] FAX: [phone] Name .................. : BERENICE DAVID Acct Number.................. : [id number] ROOM. ................. : MR Number ................... : [id number] Stay type ............. : O/P Discharge Date......... ... : 07/25/20 Admit Date ....... .. : 07/25/20 Admit Phys .................... : POLY Date of ....... : 1975 Family Phys ................... : DAVIES FRANCISCO Phone .................. : [phone] Age ................................ : 44 Film# .................. .:[id number] Sex ................................. : M Unsigned transcriptions are preliminary reports and do not represent a medical or legal document MRI LUMBAR SPINE W/O CONTRAST [id number] COMPLETE:07/25/20 12:11 [facility] 19498 (SPINE PROC REASON: R/O HNP AND STENOSIS [...] and Signed By Page 1 of 2 [facility] [address] [place] [address]. [place] [address] PHONE: [phone] FAX: [phone] Name .................. : BERENICE DAVID Acct Number.................. : [id number] ROOM. ................. : MR Number ................... : [id number] Stay type ............. : O/P Discharge Date......... ... : 07/25/20 Admit Date ......... : 07/25/20 Admit Phys ............ ........ : POLY Date of ....... : 1975 Family Phys ................... : KEKE MYERS Phone .................. : [phone] Age ................................ : 44 Film# .................. .:[id number] Sex ................................. : M Unsigned transcriptions are preliminary reports and do not represent a medical or legal document MRI LUMBAR SPINE W/O CONTRAST [id number] COMPLETE:07/25/20 12:11 [facility] 23669 (SPINE PROC REASON: R/O HNP AND STENOSIS [...] rate 20 /min 20 /min [facility] ( [facility]) Oxygen saturation in Arterial blood by Pulse oximetry 98 % 98 % [facility] ([facility] Body temperature 98.8 [degF] 98.8 [degF] [facility] ([facility] Body weight 210.00 [lb_av] 210.00 [lb_av] MEDEN T ([facility], [facility]) Body height 73 [in_i] 73 [in_i] [facility]) 6'1" Body mass index (BMI) [Ratio] 27.7 kg/m2 27.7 k g/m2 [facility] ([facility], [facility]) Systolic blood pressure 221 mm[Hg] 221 mm[Hg] [facility]) Diastolic blood pressure 143 mm[Hg] 143 mm[Hg] [facility] ([facility], [facility]) Body temperature 96.1 [degF] 96.1 [degF] [facility] ([facility] )
[2021-09-13] MEDS ORDERED: KETOROLAC 60MG 2ML VIAL IM ONE (17:05)
[2021-09-13 17:50] LABS: BASO % 0.3 % (0.0-1.0); EOS # 0.4 10^3/uL (0.0-0.5); HEMATOCRIT 44.7 % (42.0-52.0); HEMOGLOBIN 14.9 g/dl (13.5-17.5); LYMPH # 2.3 10^3/uL (1.5-5.0); LYMPH % 24.1 % (24.0-44.0); MEAN CORPUSCULAR HEMOGLOBIN 31.7 pg (27.0-33.0); MEAN CORPUSCULAR HGB CONC 33.3 g/dl (32.0-36.5); MEAN CORPUSCULAR VOLUME 95.1 fl (80.0-96.0); MONO # 0.8 10^3/uL (0.0-0.8); MONO % 8.7 % (2.0-8.0); NEUTROPHILS % 62.4 % (36.0-66.0); PLATELET COUNT, AUTOMATED 272 10^3/uL (150-450); WHITE BLOOD COUNT 9.6 10^3/uL (4.0-10.0)
[2021-09-13 17:57] VITALS: BP 180/110
[2021-09-13] MEDS ORDERED: METOPROLOL SUCC (TopROL XL) 100MG *XL* TAB PO ONE (18:00)
[2021-09-13] MEDS ORDERED: LOSARTAN 50MG TABLET PO ONE (18:00)
[2021-09-13 18:11] LABS: BLOOD UREA NITROGEN 16 MG/DL (7-18); C REACTIVE PROTEIN QUANTITATIV 1.31 MG/DL (0.00-0.30); CALCIUM LEVEL 9.1 MG/DL (8.5-10.1); CARBON DIOXIDE LEVEL 27 MEQ/L (21-32); CHLORIDE LEVEL 107 MEQ/L (98-107); CREATININE FOR GFR 1.34 MG/DL (0.70-1.30); ERYTHROCYTE SEDIMENTATION RATE 9 mm/hr (0-15); GLOMERULAR FILTRATION RATE > 60.0 (>60); GLUCOSE, FASTING 93 MG/DL (70-100); POTASSIUM SERUM 4.4 MEQ/L (3.5-5.1); SODIUM LEVEL 137 MEQ/L (136-145)
--- NOTE | 2021-09-13 18:26 | REP ---
INDICATION: swelling and severe pain over deltoid insertion. COMPARISON: None. TECHNIQUE: Real-time sonographic evaluation of the subdeltoid region. FINDINGS: There is an anechoic oval-shaped structure superficial to the humeral head in the region of the subdeltoid bursa. This measures approximately 7 x 8 x 1 cm. IMPRESSION: Findings consistent with subdeltoid bursitis. <Electronically signed by Raad Michaels > 09/13/21 3079
[2021-09-13] MEDS ORDERED: methylPREDNISolone 125MG 2ML VIAL IM ONE (19:00)
[2021-09-13] MEDS ORDERED: PRED20TA PO (19:36)
[2021-09-13 19:42] VITALS: BP 165/100
[2021-09-15 18:11] LABS: Lyme Disease IgG/IgM Antibodie <0.91 ISR (0.00-0.90); Lyme Disease IgM Ab Quantitati <0.80 index (0.00-0.79)
== END 2021-09-13 19:50 | disposition home or self-care (01) ==
LOC: M ED 12:46
DX: M75.51 Bursitis of right shoulder (principal); I10 Essential (primary) hypertension; M19.011 Primary osteoarthritis, right shoulder; F17.200 Nicotine dependence, unspecified, uncomplicated; Z79.899 Other long term (current) drug therapy
CPT/HCPCS: 73030; 76882; 80048; 85025; 85652; 86140; 86617; 96372; 99283; J1885; J2930

== ENCOUNTER 2023-07-18 15:41 | Emergency (ER) | payer SELFPAY ==
[~2023-07-18] VITALS: Ht 185.4 cm; Wt 99.8 kg
[~2023-07-18 15:41] MED LIST changes: +ADVI200C8 PO; +AMOX500C; +LOSA50TA28 PO; -LOSA50TA88 PO; +METO1TAB33; +PRED20TA PO; +ZOLP10TA2
[2023-07-18 15:42] VITALS: BP 184/111; TEMP 98.2
[2023-07-18] MEDS ORDERED: TRAZ-257 (15:53)
[2023-07-18] MEDS ORDERED: METO1TAB7 (15:53)
[2023-07-18] MEDS ORDERED: PANT40TA29 (15:53)
[2023-07-18] MEDS ORDERED: DOXA1TAB41 (15:53)
[2023-07-18] MEDS ORDERED: LISI10TA22 (15:53)
[2023-07-18] MEDS ORDERED: PERCOCET 5MG/325MG TAB PO ONE (16:00)
[2023-07-18 16:35] VITALS: O2SAT 100
== END 2023-07-18 18:03 | disposition home or self-care (01) ==
LOC: M ED 15:41
DX: S63.045A Dislocation of carpometacarpal joint of left thumb, initial encounter (principal); K21.9 Gastro-esophageal reflux disease without esophagitis; F17.200 Nicotine dependence, unspecified, uncomplicated; I10 Essential (primary) hypertension; E03.9 Hypothyroidism, unspecified; Z79.811 Long term (current) use of aromatase inhibitors; Z79.1 Long term (current) use of non-steroidal anti-inflammatories (NSAID); Z79.899 Other long term (current) drug therapy

== ENCOUNTER → 2024-01-11 | Outpatient (CLI) | payer SELFPAY ==
[~2024-01-11] MED LIST changes: +DOXA1TAB41; +LISI10TA22; +METO1TAB7; +PANT40TA29; +TRAZ-257
== END ==
LOC: M RAD 14:13
PROVIDERS: ATTEND Family Medicine
DX: E07.9 Disorder of thyroid, unspecified (principal)

== ENCOUNTER → 2024-01-21 | Outpatient (CLI) | payer SELFPAY ==
[2024-01-21 11:47] LABS: HEMATOCRIT 43.4 % (42.0-52.0); MEAN CORPUSCULAR HEMOGLOBIN 32.3 pg (27.0-33.0); MEAN CORPUSCULAR HGB CONC 34.6 g/dl (32.0-36.5); MEAN CORPUSCULAR VOLUME 93.3 fl (80.0-96.0); PLATELET COUNT, AUTOMATED 226 10^3/uL (150-450); RED BLOOD COUNT 4.65 10^6/uL (4.30-6.10); WHITE BLOOD COUNT 7.7 10^3/uL (4.0-10.0)
[2024-01-21 12:09] LABS: HEMOGLOBIN A1c 5.4 % (4.0-6.0)
[2024-01-21 12:16] LABS: ALBUMIN 3.8 G/DL (3.2-5.2); ALKALINE PHOSPHATASE 53 U/L (46-116); ALT/SGPT 20 U/L (7.0-40); AST/SGOT 18 U/L (<34); BILIRUBIN,TOTAL 0.5 MG/DL (0.3-1.2); BLOOD UREA NITROGEN 15 MG/DL (9-23); CALCIUM LEVEL 8.6 MG/DL (8.5-10.1); CARBON DIOXIDE LEVEL 24 MMOL/L (20-31); CHLORIDE LEVEL 109 MMOL/L (98-107); CHOLESTEROL LEVEL 231 MG/DL (<200); CHOLESTEROL RISK RATIO 6.83 (<5); CREATININE FOR GFR 1.29 MG/DL (0.70-1.30); GLOMERULAR FILTRATION RATE > 60.0 (>56); GLUCOSE, FASTING 109 MG/DL (60-100); HDL CHOLESTEROL 33.8 MG/DL (>40); LDL CHOLESTEROL 170.6 MG/DL (<100); NON-HDL-C 197.2 MG/DL; POTASSIUM SERUM 4.2 MMOL/L (3.5-5.1); PSA SCREENING 0.54 NG/ML (< 4.00); SODIUM LEVEL 136 MMOL/L (136-145); TOTAL PROTEIN 6.4 G/DL (5.7-8.2); TRIGLYCERIDES LEVEL 133 MG/DL (<150)
[2024-01-21 12:17] LABS: TOTAL 25(OH) VITAMIN D 13.4 NG/ML (20.0-100.0)
[2024-01-21 12:18] LABS: TESTOSTERONE 597 NG/DL (241-827); THYROID STIMULATING HORMONE 0.848 uIU/ML (0.55-4.78)
[2024-01-21 12:56] LABS: HEPATITIS C VIRUS ABY INDEX 0.04 INDEX (<0.8)
== END ==
LOC: M LAB 10:52
PROVIDERS: ATTEND Family Medicine
DX: I10 Essential (primary) hypertension (principal); R53.83 Other fatigue; E03.9 Hypothyroidism, unspecified; R00.1 Bradycardia, unspecified; I45.9 Conduction disorder, unspecified
CPT/HCPCS: 36415; 71046; 80053; 80061; 82306; 83036; 84403; 84443; 85027; 86704; 86708; 86803; 93005; G0103

== ENCOUNTER 2024-07-21 23:55 | Inpatient (IN) | payer OTHER, MEDICAID ==
[~2024-07-21] VITALS: Ht 185.4 cm; Wt 100.1 kg
[~2024-07-21 23:55] MED LIST changes: -METO1TAB33; +METO1TAB33 PO; -PANT40TA29; +PANT40TA29 PO
[2024-07-22 00:30] LABS: HEMOGLOBIN 13.7 g/dl (13.5-17.5); MEAN CORPUSCULAR HEMOGLOBIN 31.6 pg (27.0-33.0); MEAN CORPUSCULAR HGB CONC 34.3 g/dl (32.0-36.5); MEAN CORPUSCULAR VOLUME 92.4 fl (80.0-96.0); PLATELET COUNT, AUTOMATED 230 10^3/uL (150-450); RED BLOOD COUNT 4.33 10^6/uL (4.30-6.10); WHITE BLOOD COUNT 6.9 10^3/uL (4.0-10.0)
[2024-07-22 00:40] LABS: INR 1.01; PARTIAL THROMBOPLASTIN TIME 27.5 SECONDS (24.8-34.2)
[2024-07-22] MEDS ORDERED: HYDR100T PO (00:49)
[2024-07-22] MEDS ORDERED: LISI20TA33 PO (00:49)
[2024-07-22] MEDS ORDERED: CLOP75TA2 PO (00:49)
[2024-07-22] MEDS ORDERED: DOXA2TAB61 PO (00:49)
[2024-07-22] MEDS ORDERED: NIFE1TAB51 PO (00:49)
[2024-07-22 00:55] LABS: CK-MB VALUE MASS 1.2 NG/ML (<3.6)
[2024-07-22 00:56] LABS: LIPASE 53 U/L (12-53)
[2024-07-22 00:57] LABS: CPK CREATINE PHOSPHOKINASE 78 U/L (46-171); MB/CK RELATIVE INDEX 1.53 (< OR =4)
[2024-07-22 00:58] LABS: ALBUMIN 3.8 G/DL (3.2-5.2); ALKALINE PHOSPHATASE 75 U/L (46-116); ALT/SGPT 28 U/L (7.0-40); AST/SGOT 15 U/L (<34); BILIRUBIN,DIRECT < 0.1 MG/DL (<0.4); BILIRUBIN,TOTAL 0.2 MG/DL (0.3-1.2); BLOOD UREA NITROGEN 15 MG/DL (9-23); CALCIUM LEVEL 9.4 MG/DL (8.5-10.1); CARBON DIOXIDE LEVEL 24 MMOL/L (20-31); CHLORIDE LEVEL 112 MMOL/L (98-107); CREATININE FOR GFR 1.37 MG/DL (0.70-1.30); GLOMERULAR FILTRATION RATE 58.6 (>56); GLUCOSE, FASTING 88 MG/DL (60-100); POTASSIUM SERUM 4.3 MMOL/L (3.5-5.1); SODIUM LEVEL 141 MMOL/L (136-145); TOTAL PROTEIN 6.9 G/DL (5.7-8.2)
[2024-07-22 01:00] LABS: THYROID STIMULATING HORMONE 1.607 uIU/ML (0.55-4.78)
[2024-07-22 01:22] LABS: ATYPICAL LYMPH 5 % (0-5); BASOPHILS 1 % (0-1); EOSINOPHILS 2 % (0-3); LYMPHOCYTES 25 % (16-44); MONOCYTES 5 % (0-5); NEUTROPHILS 62 % (28-66); PLATELET ESTIMATE NORMAL (NORMAL)
[2024-07-22 02:31] LABS: CK-MB VALUE MASS < 1.0 NG/ML (<3.6); CPK CREATINE PHOSPHOKINASE 91 U/L (46-171); MB/CK RELATIVE INDEX 1.09 (< OR =4)
[2024-07-22] MEDS: KETOROLAC 30 MG/ML 1ML VIAL IV ONE (04:40)
[2024-07-22] MEDS: LABETALOL 100MG TAB PO ONE (04:55)
[2024-07-22] MEDS ORDERED: ISOVUE-370 76% 100ML VIAL As Ordered ONE (05:19)
[2024-07-22] MEDS: ASPIRIN 81MG CHEW TABLET PO ONE (08:05)
[2024-07-22] MEDS ORDERED: ACETAMINOPHEN TAB 650MG DOSE (2X325MG) PO PRN (08:55)
[2024-07-22] MEDS ORDERED: LEVO125T4 PO (09:21)
[2024-07-22] MEDS ORDERED: HYDR25TA87 PO (09:21)
[2024-07-22] MEDS ORDERED: TRAM50TA2 PO (09:21)
[2024-07-22] MEDS ORDERED: ERGO500029 PO (09:23)
[2024-07-22] MEDS ORDERED: ASPI-226 PO (09:23)
[2024-07-22] MEDS ORDERED: HOME MED LIST COMPLETE! XX SCH (09:25)
[2024-07-22] MEDS ORDERED: NS 1,000 ML IV SCH (10:00)
[2024-07-22 10:49] VITALS: BP 173/89; TEMP 97.7; O2SAT 98
[2024-07-22] MEDS: NS 500 ML IV ONE (10:55)
[2024-07-22] MEDS: METOPROLOL SUCC (TopROL XL) 100MG *XL* TAB PO SCH (11:43)
[2024-07-22 11:59] VITALS: BP 151/80; TEMP 97.7; O2SAT 98
[2024-07-22] MEDS: **hydrALAZINE** 50 MG TAB PO SCH (12:02)
[2024-07-22] MEDS: NIFEdipine 30MG XL TAB PO SCH (12:03)
[2024-07-22] MEDS: LEVOTHYROXINE 125MCG TABLET (0.125MG) PO SCH (12:06)
[2024-07-22] MEDS: PANTOPRAZOLE 40MG TAB (PROTONIX) PO SCH (12:06)
[2024-07-22] MEDS: CLOPIDOGREL 75 MG TAB PO SCH (12:06)
[2024-07-22 12:50] LABS: HEMOGLOBIN A1c 5.7 % (4.0-6.0)
[2024-07-22 12:59] LABS: C REACTIVE PROTEIN QUANTITATIV < 0.40 MG/DL (<1.0)
[2024-07-22 13:00] LABS: CHOLESTEROL LEVEL 212 MG/DL (<200); CHOLESTEROL RISK RATIO 8.31 (<5); HDL CHOLESTEROL 25.5 MG/DL (>40); LDL CHOLESTEROL 132.5 MG/DL (<100); NON-HDL-C 186.5 MG/DL; TRIGLYCERIDES LEVEL 270 MG/DL (<150)
[2024-07-22 14:06] VITALS: BP 169/86
[2024-07-22 15:25] VITALS: BP 146/65; TEMP 97.6; O2SAT 98
[2024-07-22 19:30] VITALS: BP 143/78; TEMP 98.4; O2SAT 98
[2024-07-22] MEDS: DOXAZOSIN MESYLATE 1 MG TAB PO SCH (20:29)
[2024-07-22] MEDS: ATORVASTATIN 20 MG TAB PO SCH (20:29)
[2024-07-22 23:28] VITALS: BP 145/87; TEMP 97.5; O2SAT 100
[2024-07-23 03:42] VITALS: BP 178/112; TEMP 97.7; O2SAT 99
[2024-07-23 06:11] LABS: HEMATOCRIT 37.7 % (42.0-52.0); HEMOGLOBIN 12.9 g/dl (13.5-17.5); MEAN CORPUSCULAR HEMOGLOBIN 32.2 pg (27.0-33.0); MEAN CORPUSCULAR HGB CONC 34.2 g/dl (32.0-36.5); PLATELET COUNT, AUTOMATED 197 10^3/uL (150-450); RED BLOOD COUNT 4.01 10^6/uL (4.30-6.10); WHITE BLOOD COUNT 6.9 10^3/uL (4.0-10.0)
[2024-07-23 06:36] LABS: ALBUMIN 3.5 G/DL (3.2-5.2); ALKALINE PHOSPHATASE 68 U/L (46-116); ALT/SGPT 25 U/L (7.0-40); AST/SGOT 13 U/L (<34); BILIRUBIN,TOTAL 0.4 MG/DL (0.3-1.2); BLOOD UREA NITROGEN 15 MG/DL (9-23); CALCIUM LEVEL 9.3 MG/DL (8.5-10.1); CARBON DIOXIDE LEVEL 25 MMOL/L (20-31); CHLORIDE LEVEL 111 MMOL/L (98-107); CREATININE FOR GFR 1.31 MG/DL (0.70-1.30); GLOMERULAR FILTRATION RATE > 60.0 (>56); GLUCOSE, FASTING 95 MG/DL (60-100); POTASSIUM SERUM 4.4 MMOL/L (3.5-5.1); SODIUM LEVEL 141 MMOL/L (136-145); TOTAL PROTEIN 6.4 G/DL (5.7-8.2)
[2024-07-23 07:17] VITALS: BP 162/102; TEMP 97.7; O2SAT 98
[2024-07-23] MEDS: ASPIRIN 81MG ENTERIC TABLET PO SCH (07:58)
[2024-07-23] MEDS: **hydrALAZINE** 50 MG TAB PO SCH (07:58)
[2024-07-23 12:05] VITALS: BP 152/98; TEMP 98; O2SAT 96
[2024-07-23] MEDS: NICOTINE 21MG/24HR 1 EA TRANSDERMAL TD SCH (13:07)
[2024-07-23 15:35] VITALS: BP 163/91; TEMP 97.3; O2SAT 98
[2024-07-23] MEDS: traMADol 50 MG TAB PO PRN (16:48)
[2024-07-23 19:35] VITALS: BP 140/85; TEMP 97.9; O2SAT 97
[2024-07-23 23:32] VITALS: BP 160/100; TEMP 97.7; O2SAT 98
[2024-07-24 07:14] LABS: BLOOD UREA NITROGEN 16 MG/DL (9-23); CALCIUM LEVEL 8.7 MG/DL (8.5-10.1); CARBON DIOXIDE LEVEL 28 MMOL/L (20-31); CHLORIDE LEVEL 109 MMOL/L (98-107); CREATININE FOR GFR 1.29 MG/DL (0.70-1.30); GLOMERULAR FILTRATION RATE > 60.0 (>56); GLUCOSE, FASTING 84 MG/DL (60-100); POTASSIUM SERUM 4.1 MMOL/L (3.5-5.1); SODIUM LEVEL 140 MMOL/L (136-145)
[2024-07-24 08:01] VITALS: BP 135/79; TEMP 98.1; O2SAT 97
[2024-07-24] MEDS: NIFEdipine 30MG XL TAB PO SCH (09:49)
[2024-07-24 11:58] VITALS: BP 153/88; TEMP 97; O2SAT 97
[2024-07-24 16:12] VITALS: BP 145/85; TEMP 97.5; O2SAT 97
[2024-07-24 20:00] VITALS: BP 156/84; TEMP 98; O2SAT 96
[2024-07-24] MEDS: **hydrALAZINE** 50 MG TAB PO SCH (21:56)
[2024-07-25 05:31] VITALS: BP 127/80; TEMP 97.8; O2SAT 97
[2024-07-25 07:56] VITALS: BP 119/65; TEMP 97.6; O2SAT 97
[2024-07-25] MEDS: ENOXAPARIN 40MG/0.4ML SYRINGE (J1650 PER 10MG) SC SCH (08:44)
[2024-07-25 08:46] VITALS: BP 119/65
[2024-07-25] MEDS ORDERED: HYDR50TA47 PO (10:35)
[2024-07-25] MEDS ORDERED: ATOR80TA59 PO (10:35)
[2024-07-25 13:20] VITALS: BP 150/90; O2SAT 97
[2024-07-28] MEDS ORDERED: VITAMIN D 50,000 UNITS CAPSULE (ERGOCALCIFEROL 1.25MG) PO SCH (09:00)
== END 2024-07-25 15:29 | disposition home or self-care (01) | DRG 45 ==
LOC: M ED 23:55 → M ED INP 07-22 08:52 → M PCU 07-22 10:43
PROVIDERS: ADMIT Hospitalist; ATTEND Hospitalist
PROC: B246ZZZ Ultrasonography of Right and Left Heart (ICD-10-PCS; principal; 2024-07-23)
DX: I63.81 Other cerebral infarction due to occlusion or stenosis of small artery (principal); I12.9 Hypertensive chronic kidney disease with stage 1 through stage 4 chronic kidney disease, or unspecified chronic kidney disease; I16.1 Hypertensive emergency; E78.5 Hyperlipidemia, unspecified; F17.210 Nicotine dependence, cigarettes, uncomplicated; E03.9 Hypothyroidism, unspecified; Z79.82 Long term (current) use of aspirin; Z79.890 Hormone replacement therapy; Z86.73 Personal history of transient ischemic attack (TIA), and cerebral infarction without residual deficits; Z79.899 Other long term (current) drug therapy; G89.29 Other chronic pain; N18.2 Chronic kidney disease, stage 2 (mild); N40.0 Benign prostatic hyperplasia without lower urinary tract symptoms; E55.9 Vitamin D deficiency, unspecified; K21.9 Gastro-esophageal reflux disease without esophagitis

== ENCOUNTER → 2024-08-21 | Outpatient (CLI) | payer MEDICAID, OTHER ==
[~2024-08-21] MED LIST changes: +ASPI-226 PO; +ATOR80TA59 PO; +CLOP75TA2 PO; +DOXA2TAB61 PO; +ERGO500029 PO; +HYDR100T PO; +HYDR25TA87 PO; +HYDR50TA47 PO; +LEVO125T4 PO; +LISI20TA33 PO; +NIFE1TAB51 PO; +TRAM50TA2 PO
[2024-08-21 11:38] LABS: CREATININE, URINE 162.6 MG/DL; MAU/CREAT RATIO 7.3 MCG/MG (0.0-30.0)
[2024-08-21 11:57] LABS: BLOOD UREA NITROGEN 20 MG/DL (9-23); CALCIUM LEVEL 9.3 MG/DL (8.5-10.1); CARBON DIOXIDE LEVEL 26 MMOL/L (20-31); CHLORIDE LEVEL 108 MMOL/L (98-107); CREATININE FOR GFR 1.25 MG/DL (0.70-1.30); GLOMERULAR FILTRATION RATE > 60.0 (>56); GLUCOSE, FASTING 90 MG/DL (60-100); POTASSIUM SERUM 4.5 MMOL/L (3.5-5.1); SODIUM LEVEL 138 MMOL/L (136-145)
== END ==
LOC: M LAB 09:10
PROVIDERS: ATTEND Internal Medicine Cardiovascular Disease
DX: I10 Essential (primary) hypertension (principal)

== ENCOUNTER → 2024-08-21 | Outpatient (CLI) | payer MEDICAID, OTHER | LOC: M LAB 09:15 | PROVIDERS: ATTEND Internal Medicine Endocrinology, Diabetes & Metabolism | DX: I1A.0 Resistant hypertension (principal) | CPT/HCPCS: 36415; G0480 ==

== ENCOUNTER 2024-09-10 15:03 | Inpatient (IN) | payer OTHER ==
[~2024-09-10] VITALS: Ht 185.4 cm; Wt 97.2 kg
[2024-09-10] MEDS ORDERED: NIFE90TA46 PO (15:16)
[2024-09-10] MEDS ORDERED: IRBE300T25 PO (15:16)
[2024-09-10] MEDS ORDERED: SPIR-10 PO (15:16)
[2024-09-10] MEDS ORDERED: [UNRECOGNIZED DRUG - OTHER] PO (15:18)
[2024-09-10 16:20] LABS: BASO % 0.8 % (0.0-1.0); EOS # 0.2 10^3/uL (0.0-0.5); EOS % 3.9 % (0.0-3.0); HEMATOCRIT 37.3 % (42.0-52.0); HEMOGLOBIN 12.7 g/dl (13.5-17.5); LYMPH # 0.8 10^3/uL (1.5-5.0); LYMPH % 16.2 % (24.0-44.0); MEAN CORPUSCULAR HEMOGLOBIN 32.1 pg (27.0-33.0); MEAN CORPUSCULAR VOLUME 94.2 fl (80.0-96.0); MONO # 0.6 10^3/uL (0.0-0.8); MONO % 11.2 % (2.0-8.0); NEUTROPHILS # 3.3 10^3/uL (1.5-8.5); NEUTROPHILS % 67.7 % (36.0-66.0); PLATELET COUNT, AUTOMATED 219 10^3/uL (150-450); RED BLOOD COUNT 3.96 10^6/uL (4.30-6.10); WHITE BLOOD COUNT 4.9 10^3/uL (4.0-10.0)
[2024-09-10 16:33] LABS: INR 0.91; PARTIAL THROMBOPLASTIN TIME 29.5 SECONDS (24.8-34.2); PROTHROMBIN TIME 12.6 SECONDS (12.5-14.5)
[2024-09-10 16:38] VITALS: BP 143/86; TEMP 98.6; O2SAT 97
[2024-09-10] MEDS ORDERED: ISOVUE-370 76% 100ML VIAL As Ordered ONE (16:43)
[2024-09-10 18:02] LABS: CK-MB VALUE MASS 1.1 NG/ML (<3.6)
[2024-09-10 18:04] LABS: MB/CK RELATIVE INDEX 1.26 (< OR =4)
[2024-09-10 18:05] LABS: ALBUMIN 3.5 G/DL (3.2-5.2); BILIRUBIN,DIRECT 0.1 MG/DL (<0.4); BILIRUBIN,TOTAL 0.3 MG/DL (0.3-1.2); CALCIUM LEVEL 8.6 MG/DL (8.5-10.1); CREATININE FOR GFR 1.34 MG/DL (0.70-1.30); GLOMERULAR FILTRATION RATE 59.8 (>56); POTASSIUM SERUM 4.3 MMOL/L (3.5-5.1); TOTAL PROTEIN 6.7 G/DL (5.7-8.2)
[2024-09-10] MEDS ORDERED: ATOR80TA59 PO (18:17)
[2024-09-10] MEDS ORDERED: HYDR50TA46 PO (18:17)
[2024-09-10] MEDS ORDERED: HOME MED LIST COMPLETE! XX SCH (18:20)
[2024-09-10] MEDS ORDERED: PROHANCE 279.3MG/ML 5ML VIAL As Ordered ONE (19:21)
[2024-09-10] MEDS ORDERED: PROHANCE 279.3MG/ML 15ML VIAL As Ordered ONE (19:21)
[2024-09-11] VITALS (16 sets, daily range): BP systolic 138–175; BP diastolic 81–96; TEMP 97.3–98.6; O2SAT 94–100
[2024-09-11] MEDS: SODIUM CHLORIDE 0.9% 500 ML IV ONE (04:48)
[2024-09-11] MEDS: LIDOCAINE 5% (LIDODERM) PATCH TD ONE (04:49)
[2024-09-11] MEDS: traMADol 50 MG TAB PO PRN (04:50)
[2024-09-11] MEDS: LEVOTHYROXINE 125MCG TABLET (0.125MG) PO SCH (07:29)
[2024-09-11] MEDS: CLOPIDOGREL 75 MG TAB PO SCH (08:31)
[2024-09-11] MEDS: HEPARIN SOD (PORCINE) 5000UNITS/ML 1ML VIAL/SYRINGE SC SCH (08:31)
[2024-09-11] MEDS: PANTOPRAZOLE 40MG TAB (PROTONIX) PO SCH (08:32)
[2024-09-11] MEDS: ATORVASTATIN 20 MG TAB PO SCH (08:32)
[2024-09-11] MEDS: ASPIRIN 81MG ENTERIC TABLET PO SCH (08:32)
[2024-09-11] MEDS: METOPROLOL SUCC (TopROL XL) 50MG **XL** TAB PO SCH (08:36)
[2024-09-11 09:14] LABS: BLOOD UREA NITROGEN 14 MG/DL (9-23); CALCIUM LEVEL 8.4 MG/DL (8.5-10.1); CARBON DIOXIDE LEVEL 25 MMOL/L (20-31); CHLORIDE LEVEL 110 MMOL/L (98-107); CREATININE FOR GFR 1.21 MG/DL (0.70-1.30); GLOMERULAR FILTRATION RATE > 60.0 (>56); GLUCOSE, FASTING 90 MG/DL (60-100); SODIUM LEVEL 139 MMOL/L (136-145)
[2024-09-12] VITALS (17 sets, daily range): BP systolic 142–169; BP diastolic 81–96; TEMP 97.1–97.7; O2SAT 93–99
[2024-09-12] MEDS: EZETIMIBE 10MG TABLET (ZETIA) PO SCH (09:00)
[2024-09-12 11:58] LABS: SSA SJOGRENS A <1.0 NEG AI (<1.0 NEG); SSB SJOGRENS B <1.0 NEG AI (<1.0 NEG)
[2024-09-12 14:12] LABS: ANA SCREEN, IFA NEGATIVE (NEGATIVE)
[2024-09-12 16:33] LABS: HOMOCYST(E)INE SERUM 52.6 umol/L (<11.4)
[2024-09-12 23:33] LABS: CARDIOLIPIN IGA ANTIBODY < 2.0 APL-U/mL (<20.0); CARDIOLIPIN IGG ANTIBODY < 2.0 GPL-U/mL (<20.0); CARDIOLIPIN IGM ANTIBODY < 2.0 MPL-U/mL (<20.0)
[2024-09-13] VITALS (7 sets, daily range): BP systolic 138–178; BP diastolic 76–98; TEMP 97–97.8; O2SAT 96–99
[2024-09-13] MEDS: diphenhydrAMINE 25MG CAP PO PRN (11:04)
[2024-09-13 12:53] LABS: DRVV SCREEN 39.5 SECONDS
[2024-09-13 12:59] LABS: PTT LUPUS TYPE ANTICOAG SCREEN 0.97 (0-1.20)
[2024-09-13] MEDS ORDERED: LIDOCAINE 2% 100MG/5ML SDV (FOR ANES.) As Ordered ONE (16:31)
[2024-09-13] MEDS ORDERED: fentaNYL 100 MCG/2 ML INJECTION As Ordered ONE (16:31)
[2024-09-13] MEDS ORDERED: propofoL 200 MG/20 ML VIAL As Ordered ONE (16:31)
[2024-09-13] MEDS ORDERED: MIDAZOLAM INJ 2MG/2ML VIAL As Ordered ONE (16:31)
[2024-09-13] MEDS: CETACAINE SPRAY 5GM As Ordered ONE (17:21)
[2024-09-13] MEDS: dexAMETHasone 1 MG TAB PO ONE (23:39)
[2024-09-14 00:07] VITALS: BP 155/88; TEMP 97.4; O2SAT 96
[2024-09-14 03:40] VITALS: BP 163/91; TEMP 97.5; O2SAT 98
[2024-09-14 07:39] VITALS: BP 139/86; TEMP 97.3; O2SAT 100
[2024-09-14 09:04] LABS: COMPLEMENT C3 134.2 MG/DL (90.0-170.0)
[2024-09-14 09:05] LABS: COMPLEMENT C4 29.4 MG/DL (12-36)
[2024-09-14 12:00] VITALS: BP 124/77; TEMP 98.1; O2SAT 94
[2024-09-14 16:00] VITALS: BP 138/76; TEMP 97.6; O2SAT 96
[2024-09-14 19:42] VITALS: BP 143/94; TEMP 97.8; O2SAT 96
[2024-09-15 05:00] VITALS: BP 138/86; TEMP 97.5; O2SAT 98
[2024-09-15 05:20] LABS: HEMATOCRIT 36.6 % (42.0-52.0); HEMOGLOBIN 12.2 g/dl (13.5-17.5); MEAN CORPUSCULAR HEMOGLOBIN 31.2 pg (27.0-33.0); MEAN CORPUSCULAR HGB CONC 33.3 g/dl (32.0-36.5); MEAN CORPUSCULAR VOLUME 93.6 fl (80.0-96.0); PLATELET COUNT, AUTOMATED 204 10^3/uL (150-450); RED BLOOD COUNT 3.91 10^6/uL (4.30-6.10)
[2024-09-15 05:35] LABS: BLOOD UREA NITROGEN 22 MG/DL (9-23); CALCIUM LEVEL 8.8 MG/DL (8.5-10.1); CARBON DIOXIDE LEVEL 26 MMOL/L (20-31); CHLORIDE LEVEL 110 MMOL/L (98-107); CREATININE FOR GFR 1.14 MG/DL (0.70-1.30); GLOMERULAR FILTRATION RATE > 60.0 (>56); GLUCOSE, FASTING 105 MG/DL (60-100); POTASSIUM SERUM 3.8 MMOL/L (3.5-5.1); SODIUM LEVEL 141 MMOL/L (136-145)
[2024-09-15 08:00] VITALS: BP 136/70; TEMP 97.6; O2SAT 96
[2024-09-15 09:18] LABS: CRYOGLOBULINS NEGATIVE (NEGATIVE)
[2024-09-15 12:24] VITALS: BP 137/72; TEMP 97.5; O2SAT 96
[2024-09-15 13:58] LABS: PROTEIN S ANTIGEN FREE 68 % normal (57-171); PROTEIN S ANTIGEN TOTAL 96 % normal (70-140)
[2024-09-15 15:09] LABS: APPEARANCE, URINE CLEAR (CLEAR); BACTERIA, URINE AUTO NEGATIVE (NEGATIVE); BILIRUBIN, URINE AUTO NEGATIVE (NEGATIVE); BLOOD, URINE BLOOD NEGATIVE (NEGATIVE); COLOR, URINE YELLOW (YELLOW); GLUCOSE, URINE (UA) AUTO NEGATIVE (NEGATIVE); KETONE, URINE AUTO NEGATIVE (NEGATIVE); LEUKOCYTE ESTERASE, URINE AUTO NEGATIVE (NEGATIVE); MUCUS, URINE SMALL (NEGATIVE); NITRITE, URINE AUTO NEGATIVE (NEGATIVE); PROTEIN, URINE AUTO NEGATIVE (NEGATIVE); RBC, URINE AUTO 0 /HPF (0-3); SQUAMOUS EPITHELIAL CELL UR AU 0 /HPF (0-6); UROBILINOGEN, URINE AUTO 0.2 mg/dL (0.0-2.0); WBC, URINE AUTO 1 /HPF (0-3)
[2024-09-15 16:44] VITALS: BP 135/75; TEMP 97.2; O2SAT 97
[2024-09-15 19:40] VITALS: BP 139/84; TEMP 97.4; O2SAT 96
[2024-09-16 00:42] LABS: PROTEIN, TOTAL SO 6.5 g/dL (6.1-8.1)
[2024-09-16 05:08] VITALS: BP 139/81; TEMP 97.1; O2SAT 97
[2024-09-16 05:40] LABS: HEMATOCRIT 36.6 % (42.0-52.0); HEMOGLOBIN 12.5 g/dl (13.5-17.5); MEAN CORPUSCULAR HEMOGLOBIN 31.8 pg (27.0-33.0); MEAN CORPUSCULAR HGB CONC 34.2 g/dl (32.0-36.5); MEAN CORPUSCULAR VOLUME 93.1 fl (80.0-96.0); PLATELET COUNT, AUTOMATED 220 10^3/uL (150-450); RED BLOOD COUNT 3.93 10^6/uL (4.30-6.10)
[2024-09-16 06:06] LABS: BLOOD UREA NITROGEN 19 MG/DL (9-23); CALCIUM LEVEL 9.1 MG/DL (8.5-10.1); CARBON DIOXIDE LEVEL 25 MMOL/L (20-31); CHLORIDE LEVEL 110 MMOL/L (98-107); CREATININE FOR GFR 1.08 MG/DL (0.70-1.30); GLOMERULAR FILTRATION RATE > 60.0 (>56); GLUCOSE, FASTING 91 MG/DL (60-100); SODIUM LEVEL 142 MMOL/L (136-145)
[2024-09-16 08:22] VITALS: BP 149/85; O2SAT 97
[2024-09-16 11:44] VITALS: BP 147/85; TEMP 97.3; O2SAT 97
[2024-09-16 20:00] VITALS: BP 147/86; TEMP 97.4; O2SAT 96
[2024-09-16 21:35] VITALS: BP 167/95; TEMP 97.5; O2SAT 97
[2024-09-16] MEDS ORDERED: HYDROCORTISONE 1% CREAM 30GM TOP PRN (23:25)
[2024-09-17] VITALS (11 sets, daily range): BP systolic 110–156; BP diastolic 65–92; TEMP 97.3–98.2; O2SAT 94–98
[2024-09-17 01:02] LABS: ANCA SCREEN Negative (Negative)
[2024-09-17 06:10] LABS: HEMATOCRIT 36.7 % (42.0-52.0); HEMOGLOBIN 12.4 g/dl (13.5-17.5); MEAN CORPUSCULAR HEMOGLOBIN 31.2 pg (27.0-33.0); MEAN CORPUSCULAR HGB CONC 33.8 g/dl (32.0-36.5); MEAN CORPUSCULAR VOLUME 92.4 fl (80.0-96.0); PLATELET COUNT, AUTOMATED 216 10^3/uL (150-450); RED BLOOD COUNT 3.97 10^6/uL (4.30-6.10); WHITE BLOOD COUNT 6.6 10^3/uL (4.0-10.0)
[2024-09-17 06:21] LABS: INR 0.9; PARTIAL THROMBOPLASTIN TIME 30.1 SECONDS (24.8-34.2); PROTHROMBIN TIME 12.4 SECONDS (12.5-14.5)
[2024-09-17 06:42] LABS: BLOOD UREA NITROGEN 17 MG/DL (9-23); CALCIUM LEVEL 9.1 MG/DL (8.5-10.1); CARBON DIOXIDE LEVEL 27 MMOL/L (20-31); CHLORIDE LEVEL 107 MMOL/L (98-107); CREATININE FOR GFR 1.27 MG/DL (0.70-1.30); GLOMERULAR FILTRATION RATE > 60.0 (>56); GLUCOSE, FASTING 75 MG/DL (60-100); POTASSIUM SERUM 4.4 MMOL/L (3.5-5.1); SODIUM LEVEL 142 MMOL/L (136-145)
[2024-09-17] MEDS ORDERED: CLOPIDOGREL 75 MG TAB PO SCH (09:00)
[2024-09-17] MEDS ORDERED: ASPIRIN 81MG CHEW TABLET PEG SCH (09:00)
[2024-09-17] MEDS ORDERED: ISOVUE-300 61% 100ML VIAL As Ordered ONE (14:27)
[2024-09-17] MEDS ORDERED: LIDOCAINE 1% MDV 20ML VIAL As Ordered ONE (14:27)
[2024-09-17] MEDS: NS 1,000 ML IV SCH ×2 (14:55→18:37)
[2024-09-17] MEDS ORDERED: ceFAZolin 2 GM/D5W 50 ML IV BAG As Ordered ONE (15:25)
[2024-09-17] MEDS: ceFAZolin SOD 2 GM in IV 1 EA IV ONE (15:27)
[2024-09-17] MEDS ORDERED: hydrALAZINE 20MG/ML 1ML VIAL As Ordered ONE (15:46)
[2024-09-17] MEDS ORDERED: HEPARIN 1,000UNITS/ML 10ML VIAL (FOR RADIOLOGY & DIALYSIS ONLY) As Ordered ONE (15:48)
[2024-09-17 16:47] LABS: PROTEIN C ANTIGEN 94 % normal (70-140)
[2024-09-17] MEDS ORDERED: ONDANSETRON 4MG 2ML VIAL IV PRN (17:50)
[2024-09-17] MEDS ORDERED: PERCOCET 5MG/325MG TAB PO PRN (17:50)
[2024-09-17] MEDS ORDERED: ACETAMINOPHEN 325 MG TAB PO PRN (17:50)
[2024-09-17 18:54] LABS: HEMATOCRIT 39.5 % (42.0-52.0); HEMOGLOBIN 13.5 g/dl (13.5-17.5)
[2024-09-17] MEDS: MORPHINE 4 MG/ML 1ML VIAL IV ONE (19:46)
[2024-09-17] MEDS: CLOPIDOGREL 75 MG TAB PO SCH (22:22)
[2024-09-17] MEDS: ASPIRIN 81MG CHEW TABLET PO SCH (22:22)
[2024-09-18] VITALS (8 sets, daily range): BP systolic 120–142; BP diastolic 43–83; TEMP 97.3–98.1; O2SAT 92–96
[2024-09-18 05:50] LABS: HEMATOCRIT 35.3 % (42.0-52.0); HEMOGLOBIN 12.2 g/dl (13.5-17.5); MEAN CORPUSCULAR HEMOGLOBIN 31.8 pg (27.0-33.0); MEAN CORPUSCULAR HGB CONC 34.6 g/dl (32.0-36.5); MEAN CORPUSCULAR VOLUME 91.9 fl (80.0-96.0); PLATELET COUNT, AUTOMATED 218 10^3/uL (150-450); RED BLOOD COUNT 3.84 10^6/uL (4.30-6.10); WHITE BLOOD COUNT 6.8 10^3/uL (4.0-10.0)
[2024-09-18 06:18] LABS: BLOOD UREA NITROGEN 19 MG/DL (9-23); CALCIUM LEVEL 8.7 MG/DL (8.5-10.1); CARBON DIOXIDE LEVEL 25 MMOL/L (20-31); CHLORIDE LEVEL 106 MMOL/L (98-107); CREATININE FOR GFR 1.23 MG/DL (0.70-1.30); GLOMERULAR FILTRATION RATE > 60.0 (>56); GLUCOSE, FASTING 87 MG/DL (60-100); POTASSIUM SERUM 4.2 MMOL/L (3.5-5.1); SODIUM LEVEL 139 MMOL/L (136-145)
[2024-09-18 06:32] LABS: ALBUMIN SO 3.9 g/dL (3.8-4.8); ALPHA 1 GLOBULINS SO 0.3 g/dL (0.2-0.3); ALPHA 2 GLOBULINS SO 0.7 g/dL (0.5-0.9); BETA 2 GLOBULIN SO 0.4 g/dL (0.2-0.5); BETA GLOBULIN SO 0.3 g/dL (0.4-0.6); GAMMA GLOBULINS SO 0.9 g/dL (0.8-1.7)
[2024-09-18 07:12] LABS: ANA PATTERN Nuclear, Speckled (NEGATIVE); ANA SCREEN, IFA POSITIVE (NEGATIVE); ANA TITER 1:40 titer (<1:40)
[2024-09-18 07:15] LABS: HEPATITIS B SURFACE ANTIGEN NEGATIVE (NEGATIVE)
[2024-09-18 07:34] LABS: HEPATITIS B CORE ANTIBODY IGM NEGATIVE (NEGATIVE); HEPATITIS C VIRUS ABY INDEX 0.04 INDEX (<0.8)
[2024-09-18] MEDS ORDERED: CLOPIDOGREL 75 MG TAB PO SCH (09:00)
[2024-09-18] MEDS ORDERED: ASPIRIN 81MG CHEW TABLET PO SCH (09:00)
[2024-09-18] MEDS ORDERED: EZET10TA21 PO (12:07)
[2024-09-18] MEDS ORDERED: METO50TA7 PO (12:07)
[2024-09-18] MEDS ORDERED: CLONI1TA PO (14:43)
[2024-09-18 15:11] LABS: CHOLESTEROL LEVEL 102 MG/DL (<200); CHOLESTEROL RISK RATIO 4.03 (<5); HDL CHOLESTEROL 25.3 MG/DL (>40); LDL CHOLESTEROL 46.3 MG/DL (<100); NON-HDL-C 76.7 MG/DL; TRIGLYCERIDES LEVEL 152 MG/DL (<150)
[2024-09-18 15:16] LABS: HEMOGLOBIN A1c 5.6 % (4.0-6.0)
[2024-09-19 03:43] LABS: ANTI THROMBIN 3 ANTIGEN IMMUNO 96 % normal (80-120); ANTI THROMBIN 3 FUNCT ACTIVITY 110 % normal (80-135)
[2024-09-19 23:53] LABS: Antimyeloperxidase(MPO) Abs < 1.0 AI (<1.0); Antiproteinase 3 (PR-3) Abs < 1.0 AI (<1.0)
[2024-09-20 00:12] LABS: ANCA SCREEN REFLEX Negative (Negative)
[2024-09-20 14:37] LABS: COMPLEMENT TOTAL (CH50) 56 U/mL (31-60)
== END 2024-09-18 15:25 | disposition home or self-care (01) | DRG 24 ==
LOC: M ED 15:03 → M ED INP 09-11 03:26 → M PCU 09-11 04:29 → M MSPAV 09-16 21:28
PROVIDERS: ADMIT Student in an Organized Health Care Education/Training Program; ATTEND Internal Medicine
PROC: B246ZZZ Ultrasonography of Right and Left Heart (ICD-10-PCS; principal; 2024-09-13 17:30)
PROC: 04793DZ Dilation of Right Renal Artery with Intraluminal Device, Percutaneous Approach (ICD-10-PCS; 2024-09-17)
DX: I63.9 Cerebral infarction, unspecified (principal); M30.0 Polyarteritis nodosa; N17.9 Acute kidney failure, unspecified; I70.1 Atherosclerosis of renal artery; E03.9 Hypothyroidism, unspecified; E55.9 Vitamin D deficiency, unspecified; E78.5 Hyperlipidemia, unspecified; E87.6 Hypokalemia; H53.2 Diplopia; I15.0 Renovascular hypertension; K21.9 Gastro-esophageal reflux disease without esophagitis; M54.9 Dorsalgia, unspecified; N18.2 Chronic kidney disease, stage 2 (mild); N40.0 Benign prostatic hyperplasia without lower urinary tract symptoms; F17.200 Nicotine dependence, unspecified, uncomplicated; Z79.899 Other long term (current) drug therapy; Z79.82 Long term (current) use of aspirin; I08.3 Combined rheumatic disorders of mitral, aortic and tricuspid valves

== ENCOUNTER → 2024-09-18 | Outpatient (CLI) | payer OTHER ==
[~2024-09-18] MED LIST changes: +CLONI1TA PO; +EZET10TA21 PO; +HYDR50TA46 PO; +IRBE300T25 PO; +METO50TA7 PO; +NIFE90TA46 PO; +SPIR-10 PO; +[UNRECOGNIZED DRUG - OTHER] PO
== END ==
LOC: M EKG 15:27
PROVIDERS: ATTEND Internal Medicine
DX: Z86.73 Personal history of transient ischemic attack (TIA), and cerebral infarction without residual deficits (principal); Z53.9 Procedure and treatment not carried out, unspecified reason

== ENCOUNTER → 2024-10-19 | Outpatient (CLI) | payer OTHER | LOC: M RAD 09:17 | PROVIDERS: ATTEND Radiology Diagnostic Radiology | DX: I70.1 Atherosclerosis of renal artery (principal); Z95.828 Presence of other vascular implants and grafts ==

== ENCOUNTER → 2024-10-24 | Outpatient (POV) | payer OTHER ==
[~2024-10-24] VITALS: Ht 185.4 cm; Wt 100.0 kg
[2024-10-24 14:15] VITALS: BP 140/91; O2SAT 97
== END ==
LOC: M IRPOV 13:54
PROVIDERS: ATTEND Radiology Diagnostic Radiology
DX: Z48.812 Encounter for surgical aftercare following surgery on the circulatory system (principal); E27.8 Other specified disorders of adrenal gland; I10 Essential (primary) hypertension; E78.5 Hyperlipidemia, unspecified; F17.210 Nicotine dependence, cigarettes, uncomplicated; Z79.01 Long term (current) use of anticoagulants; Z79.82 Long term (current) use of aspirin; Z79.899 Other long term (current) drug therapy; Z86.73 Personal history of transient ischemic attack (TIA), and cerebral infarction without residual deficits

== ENCOUNTER 2025-01-18 15:16 | Emergency (ER) | payer OTHER ==
[~2025-01-18] VITALS: Ht 185.4 cm; Wt 99.8 kg
[2025-01-18 15:19] VITALS: TEMP 98.8
[2025-01-18 16:37] LABS: BASO % 0.1 % (0.0-1.0); HEMATOCRIT 39.8 % (42.0-52.0); HEMOGLOBIN 13.7 g/dl (13.5-17.5); LYMPH # 0.8 10^3/uL (1.5-5.0); LYMPH % 6.3 % (24.0-44.0); MEAN CORPUSCULAR HEMOGLOBIN 31.9 pg (27.0-33.0); MEAN CORPUSCULAR HGB CONC 34.4 g/dl (32.0-36.5); MEAN CORPUSCULAR VOLUME 92.8 fl (80.0-96.0); MONO # 0.5 10^3/uL (0.0-0.8); MONO % 3.9 % (2.0-8.0); PLATELET COUNT, AUTOMATED 232 10^3/uL (150-450); RED BLOOD COUNT 4.29 10^6/uL (4.30-6.10); WHITE BLOOD COUNT 12.3 10^3/uL (4.0-10.0)
[2025-01-18 16:59] LABS: INR 0.89; PARTIAL THROMBOPLASTIN TIME 21.2 SECONDS (24.8-34.2); PROTHROMBIN TIME 12.4 SECONDS (12.5-14.5)
[2025-01-18 17:06] LABS: KETONE, URINE AUTO RFX NEGATIVE (NEGATIVE); LEUKOCYTE ESTERASE UR AUTO RFX NEGATIVE (NEGATIVE); NITRITE, URINE AUTO RFX NEGATIVE (NEGATIVE); RBC, URINE AUTO RFX TNTC /HPF (0-3); SQUAM EPITHELIAL CELL UR AURFX 0 /HPF (0-6); WBC, URINE AUTO RFX 0 /HPF (0-3)
[2025-01-18 17:08] LABS: LIPASE 43 U/L (12-53)
[2025-01-18 17:11] LABS: ALBUMIN 3.7 G/DL (3.2-5.2); ALKALINE PHOSPHATASE 52 U/L (40-129); ALT/SGPT 55 U/L (7.0-40); AST/SGOT 23 U/L (<34); BILIRUBIN,DIRECT 0.2 MG/DL (<0.4); BILIRUBIN,TOTAL 0.5 MG/DL (0.3-1.2); BLOOD UREA NITROGEN 25 MG/DL (9-23); CALCIUM LEVEL 9.3 MG/DL (8.5-10.1); CARBON DIOXIDE LEVEL 29 MMOL/L (20-31); CHLORIDE LEVEL 101 MMOL/L (98-107); CREATININE FOR GFR 1.25 MG/DL (0.70-1.30); GLOMERULAR FILTRATION RATE > 60.0 (>56); GLUCOSE, FASTING 145 MG/DL (60-100); SODIUM LEVEL 137 MMOL/L (136-145); TOTAL PROTEIN 6.6 G/DL (5.7-8.2)
[2025-01-18] MEDS ORDERED: ISOVUE-370 76% 100ML VIAL As Ordered ONE (17:32)
[2025-01-18 18:26] VITALS: BP 172/89; O2SAT 95
== END 2025-01-18 18:43 | disposition home or self-care (01) ==
LOC: M ED 15:16
DX: R31.9 Hematuria, unspecified (principal); I10 Essential (primary) hypertension; N18.9 Chronic kidney disease, unspecified; Z86.73 Personal history of transient ischemic attack (TIA), and cerebral infarction without residual deficits; Z79.01 Long term (current) use of anticoagulants; F17.200 Nicotine dependence, unspecified, uncomplicated; Z79.82 Long term (current) use of aspirin; Z79.899 Other long term (current) drug therapy
CPT/HCPCS: 74174; 74176; 80048; 80076; 81001; 83690; 85025; 85610; 85730; 86850; 86900; 86901; 99284; Q9967

== ENCOUNTER → 2025-01-22 | Outpatient (REF) | payer OTHER ==
[2025-01-22 14:24] LABS: SPECIFIC GRAVITY,URINE MANUAL 1.024 (1.002-1.035)
[2025-01-22 14:25] LABS: APPEARANCE, URINE MANUAL TURBID (CLEAR); BILIRUBIN, URINE MANUAL OBSCURED (NEGATIVE); COLOR, URINE MANUAL RED (YELLOW); GLUCOSE, URINE (UA) MANUAL OBSCURED mg/dL (NEGATIVE); KETONE, URINE MANUAL OBSCURED mg/dL (NEGATIVE); LEUKOCYTE ESTERASE, URINE MAN OBSCURED (NEGATIVE); NITRITE, URINE MANUAL OBSCURED (NEGATIVE); PH,URINE MAN OBSCURED UNITS (5.0 - 7.0); PROTEIN, URINE MANUAL OBSCURED mg/dL (NEGATIVE); UROBILINOGEN, URINE MANUAL OBSCURED mg/dl (NORMAL)
[2025-01-22 14:26] LABS: BLOOD URINE MANUAL POSITIVE (NEGATIVE)
[2025-01-22 14:28] LABS: RBC, URINE TNTC /hpf (0-3); SQUAMOUS EPITHELIAL CELL URINE NONE SEEN /hpf (SMALL AMT)
[2025-01-22 14:29] LABS: BACTERIA, URINE NONE SEEN; HYALINE CAST, URINE NONE SEEN /lpf (0-1)
== END ==
LOC: M SMT 12:43
PROVIDERS: ATTEND Physician Assistant
DX: R31.0 Gross hematuria (principal)

== ENCOUNTER → 2025-02-19 | Outpatient (CLI) | payer OTHER ==
[~2025-02-19] MED LIST changes: +AMLO1TAB25 PO; +ASPI325T57 PO; +CHLO125TA PO; +CLON-412 PO; +LABE20TAB PO; +METO1TAB7 PO
[2025-02-19 16:12] LABS: APPEARANCE, URINE CLEAR (CLEAR); BACTERIA, URINE AUTO NEGATIVE (NEGATIVE); BILIRUBIN, URINE AUTO NEGATIVE (NEGATIVE); BLOOD, URINE BLOOD NEGATIVE (NEGATIVE); COLOR, URINE YELLOW (YELLOW); GLUCOSE, URINE (UA) AUTO NEGATIVE (NEGATIVE); KETONE, URINE AUTO NEGATIVE (NEGATIVE); LEUKOCYTE ESTERASE, URINE AUTO NEGATIVE (NEGATIVE); MUCUS, URINE SMALL (NEGATIVE); NITRITE, URINE AUTO NEGATIVE (NEGATIVE); PROTEIN, URINE AUTO NEGATIVE (NEGATIVE); RBC, URINE AUTO 1 /HPF (0-3); SPECIFIC GRAVITY URINE AUTO 1.012 (1.002-1.035); SQUAMOUS EPITHELIAL CELL UR AU 0 /HPF (0-6); UROBILINOGEN, URINE AUTO 0.2 mg/dL (0.0-2.0); WBC, URINE AUTO 0 /HPF (0-3)
== END ==
LOC: M LAB 15:19
PROVIDERS: ATTEND Family Medicine
DX: Z01.818 Encounter for other preprocedural examination (principal); N39.0 Urinary tract infection, site not specified

== ENCOUNTER → 2025-02-19 | Outpatient (CLI) | payer OTHER ==
[2025-02-19 09:08] LABS: HEMATOCRIT 34.2 % (42.0-52.0); HEMOGLOBIN 11.2 g/dl (13.5-17.5); MEAN CORPUSCULAR HEMOGLOBIN 30.4 pg (27.0-33.0); MEAN CORPUSCULAR HGB CONC 32.7 g/dl (32.0-36.5); MEAN CORPUSCULAR VOLUME 92.9 fl (80.0-96.0); PLATELET COUNT, AUTOMATED 315 10^3/uL (150-450); RED BLOOD COUNT 3.68 10^6/uL (4.30-6.10); WHITE BLOOD COUNT 14.2 10^3/uL (4.0-10.0)
[2025-02-19 09:19] LABS: INR 0.89; PROTHROMBIN TIME 12.3 SECONDS (12.5-14.5)
[2025-02-19 09:30] LABS: PROSTATIC SPECIFIC AG MONITOR 0.63 NG/ML (< 4.00)
[2025-02-19 09:34] LABS: TESTOSTERONE 269 NG/DL (241-827); THYROID STIMULATING HORMONE 0.813 uIU/ML (0.55-4.78)
[2025-02-19 09:52] LABS: ALBUMIN 3.7 G/DL (3.2-5.2); ALKALINE PHOSPHATASE 54 U/L (40-129); ALT/SGPT 44 U/L (7.0-40); AST/SGOT 14 U/L (<34); BILIRUBIN,TOTAL 0.3 MG/DL (0.3-1.2); BLOOD UREA NITROGEN 27 MG/DL (9-23); CALCIUM LEVEL 9.3 MG/DL (8.5-10.1); CARBON DIOXIDE LEVEL 29 MMOL/L (20-31); CHLORIDE LEVEL 106 MMOL/L (98-107); CHOLESTEROL LEVEL 157 MG/DL (<200); CHOLESTEROL RISK RATIO 2.78 (<5); CREATININE FOR GFR 1.33 MG/DL (0.70-1.30); GLOMERULAR FILTRATION RATE > 60.0 (>56); GLUCOSE, FASTING 116 MG/DL (60-100); HDL CHOLESTEROL 56.3 MG/DL (>40); LDL CHOLESTEROL 54.9 MG/DL (<100); NON-HDL-C 100.7 MG/DL; SODIUM LEVEL 141 MMOL/L (136-145); TOTAL PROTEIN 6.3 G/DL (5.7-8.2); TRIGLYCERIDES LEVEL 229 MG/DL (<150)
[2025-02-19 09:57] LABS: HEMOGLOBIN A1c 6.2 % (4.0-6.0)
== END ==
LOC: M RAD 08:30
PROVIDERS: ATTEND Family Medicine
DX: I10 Essential (primary) hypertension (principal); R53.83 Other fatigue; E03.9 Hypothyroidism, unspecified

== ENCOUNTER 2025-02-26 06:51 | Day surgery (SDC) | payer OTHER ==
[~2025-02-26] VITALS: Ht 185.4 cm; Wt 103.4 kg
[2025-02-26] MEDS ORDERED: LR 1,000 ML IV SCH ×2 (07:20→10:30)
[2025-02-26] MEDS ORDERED: propofoL 200 MG/20 ML VIAL As Ordered ONE (08:30)
[2025-02-26] MEDS ORDERED: LIDOCAINE 2% 100MG/5ML SDV (FOR ANES.) As Ordered ONE (08:30)
[2025-02-26] MEDS ORDERED: MIDAZOLAM INJ 2MG/2ML VIAL As Ordered ONE (08:31)
[2025-02-26] MEDS ORDERED: fentaNYL 100 MCG/2 ML INJECTION As Ordered ONE (08:31)
[2025-02-26] MEDS: ceFAZolin SOD 2 GM IV ONCE IV ONE (09:30)
[2025-02-26] MEDS ORDERED: ROCURONIUM BROMIDE 50MG/5ML VIAL As Ordered ONE (09:30)
[2025-02-26] MEDS ORDERED: ALBUTEROL 6.7GM INHALER **FOR ANES. CART/OMNICELL ONLY As Ordered ONE (09:47)
[2025-02-26] MEDS ORDERED: ACETAMINOPHEN 1000MG/100ML IV BAG As Ordered ONE (09:48)
[2025-02-26] MEDS ORDERED: ONDANSETRON 4MG 2ML VIAL As Ordered ONE (10:09)
[2025-02-26] MEDS: LIDOCAINE 1% MDV 50ML VIAL As Ordered ONE (10:12)
[2025-02-26] MEDS: LIDOCAINE 2% 5ML JELLY UROJET As Ordered ONE (10:14)
[2025-02-26] MEDS: ISOVUE-300 61% 100ML VIAL As Ordered ONE (10:16)
[2025-02-26] MEDS ORDERED: ONDANSETRON 4MG 2ML VIAL IV PRN (10:30)
[2025-02-26] MEDS ORDERED: fentaNYL 100 MCG/2 ML INJECTION IV PRN (10:30)
[2025-02-26 11:20] VITALS: BP 141/72; TEMP 97.7; O2SAT 100
== END 2025-02-26 11:45 | disposition home or self-care (01) ==
LOC: M SDC 06:51
PROVIDERS: ATTEND Specialist
DX: C67.9 Malignant neoplasm of bladder, unspecified (principal); R31.0 Gross hematuria; N13.4 Hydroureter; I10 Essential (primary) hypertension; E78.5 Hyperlipidemia, unspecified; K21.9 Gastro-esophageal reflux disease without esophagitis; E03.9 Hypothyroidism, unspecified; F17.210 Nicotine dependence, cigarettes, uncomplicated; Z86.73 Personal history of transient ischemic attack (TIA), and cerebral infarction without residual deficits; Z79.02 Long term (current) use of antithrombotics/antiplatelets; Z79.82 Long term (current) use of aspirin; G47.33 Obstructive sleep apnea (adult) (pediatric); Z79.899 Other long term (current) drug therapy; Z79.52 Long term (current) use of systemic steroids
CPT/HCPCS: 52240; 76000; 88305; J0131; J0690; J1100; J2250; J2405; J3010; Q9967

== ENCOUNTER → 2025-03-23 | Outpatient (CLI) | payer OTHER ==
[2025-03-23 12:51] LABS: HEMATOCRIT 34.9 % (42.0-52.0); HEMOGLOBIN 11.4 g/dl (13.5-17.5); MEAN CORPUSCULAR HGB CONC 32.7 g/dl (32.0-36.5); MEAN CORPUSCULAR VOLUME 91.8 fl (80.0-96.0); PLATELET COUNT, AUTOMATED 262 10^3/uL (150-450); WHITE BLOOD COUNT 9.4 10^3/uL (4.0-10.0)
[2025-03-23 13:03] LABS: INR 0.88; PROTHROMBIN TIME 12.3 SECONDS (12.5-14.5)
[2025-03-23 13:12] LABS: HEMOGLOBIN A1c 6.5 % (4.0-6.0)
[2025-03-23 13:24] LABS: ALBUMIN 3.8 G/DL (3.2-5.2); BILIRUBIN,TOTAL 0.4 MG/DL (0.3-1.2); CALCIUM LEVEL 9.6 MG/DL (8.5-10.1); CHOLESTEROL RISK RATIO 2.76 (<5); CREATININE FOR GFR 1.47 MG/DL (0.70-1.30); GLOMERULAR FILTRATION RATE 57.4 (>56); HDL CHOLESTEROL 48.1 MG/DL (>40); LDL CHOLESTEROL 55.9 MG/DL (<100); NON-HDL-C 84.9 MG/DL; POTASSIUM SERUM 3.6 MMOL/L (3.5-5.1); TOTAL PROTEIN 6.6 G/DL (5.7-8.2)
[2025-03-23 13:26] LABS: THYROID STIMULATING HORMONE 0.92 uIU/ML (0.55-4.78)
== END ==
LOC: M RAD 12:10
PROVIDERS: ATTEND Family Medicine
DX: I10 Essential (primary) hypertension (principal); R53.83 Other fatigue; E03.9 Hypothyroidism, unspecified

== ENCOUNTER → 2025-05-29 | Outpatient (REF) | payer OTHER ==
[2025-05-29 17:48] LABS: APPEARANCE, URINE HAZY (CLEAR); BACTERIA, URINE AUTO NEGATIVE (NEGATIVE); BILIRUBIN, URINE AUTO NEGATIVE (NEGATIVE); BLOOD, URINE BLOOD NEGATIVE (NEGATIVE); GLUCOSE, URINE (UA) AUTO NEGATIVE (NEGATIVE); KETONE, URINE AUTO TRACE mg/dL (NEGATIVE); LEUKOCYTE ESTERASE, URINE AUTO NEGATIVE (NEGATIVE); MUCUS, URINE SMALL (NEGATIVE); NITRITE, URINE AUTO NEGATIVE (NEGATIVE); PROTEIN, URINE AUTO 1+ mg/dL (NEGATIVE); RBC, URINE AUTO 2 /HPF (0-3); SPECIFIC GRAVITY URINE AUTO 1.030 (1.002-1.035); SQUAMOUS EPITHELIAL CELL UR AU 0 /HPF (0-6); UROBILINOGEN, URINE AUTO 0.2 mg/dL (0.0-2.0); WBC, URINE AUTO 2 /HPF (0-3)
== END ==
LOC: M SMT 16:52
PROVIDERS: ATTEND Urology
DX: Z85.51 Personal history of malignant neoplasm of bladder (principal)

== ENCOUNTER 2025-06-18 08:47 | Day surgery (SDC) | payer OTHER ==
[~2025-06-18] VITALS: Ht 185.4 cm; Wt 100.7 kg
[2025-06-18] MEDS ORDERED: ROCURONIUM BROMIDE 50MG/5ML VIAL As Ordered ONE (10:20)
[2025-06-18] MEDS ORDERED: LIDOCAINE 2% 100 MG/5 ML SDV (FOR ANES.) As Ordered ONE (10:20)
[2025-06-18] MEDS ORDERED: MIDAZOLAM INJ 2 MG/2 ML VIAL As Ordered ONE (10:20)
[2025-06-18] MEDS: LIDOCAINE W/EPINEPHrine 1% 20 ML VIAL As Ordered ONE (10:31)
[2025-06-18] MEDS ORDERED: ACETAMINOPHEN 1000MG/100ML IV BAG As Ordered ONE (11:39)
[2025-06-18] MEDS ORDERED: SUGAMMADEX SODIUM 500 MG/5 ML VIAL As Ordered ONE (11:43)
[2025-06-18] MEDS ORDERED: ONDANSETRON 4MG 2ML VIAL As Ordered ONE (11:43)
[2025-06-18] MEDS ORDERED: dexAMETHasone 4 MG/ML 1 ML VIAL As Ordered ONE (11:43)
[2025-06-18] MEDS ORDERED: diphenhydrAMINE 50 MG/ML VIAL IV PRN (11:55)
[2025-06-18] MEDS ORDERED: LR 1,000 ML IV SCH (11:55)
[2025-06-18] MEDS ORDERED: HYDROMORPHONE HCL 0.5 MG/0.5 ML SYRINGE IV PRN (11:55)
[2025-06-18 13:21] VITALS: BP 129/67; TEMP 97.4; O2SAT 96
== END 2025-06-18 13:35 | disposition home or self-care (01) ==
LOC: M SDC 08:47
PROVIDERS: ATTEND Otolaryngology
DX: K13.70 Unspecified lesions of oral mucosa (principal); I10 Essential (primary) hypertension; E78.5 Hyperlipidemia, unspecified; E03.9 Hypothyroidism, unspecified; K21.9 Gastro-esophageal reflux disease without esophagitis; Z86.73 Personal history of transient ischemic attack (TIA), and cerebral infarction without residual deficits; F17.210 Nicotine dependence, cigarettes, uncomplicated; G47.33 Obstructive sleep apnea (adult) (pediatric); Z79.82 Long term (current) use of aspirin; Z79.02 Long term (current) use of antithrombotics/antiplatelets; J44.9 Chronic obstructive pulmonary disease, unspecified; Z79.899 Other long term (current) drug therapy
CPT/HCPCS: 42106; 88305; J0131; J1100; J2250; J2405; J3010

== ENCOUNTER → 2025-06-25 | Outpatient (CLI) | payer OTHER ==
[2025-06-25 16:24] LABS: BASO # 0.0 10^3/uL (0.0-0.2); BASO % 0.6 % (0.0-1.0); EOS # 0.3 10^3/uL (0.0-0.5); EOS % 3.8 % (0.0-3.0); LYMPH # 1.7 10^3/uL (1.5-5.0); LYMPH % 23.0 % (24.0-44.0); MONO # 0.7 10^3/uL (0.0-0.8); MONO % 9.1 % (2.0-8.0); NEUTROPHILS # 4.6 10^3/uL (1.5-8.5); NEUTROPHILS % 63.4 % (36.0-66.0); PLATELET COUNT, AUTOMATED 274 10^3/uL (150-450)
[2025-06-25 16:42] LABS: MALB URINE SIEMENS 42.0 MG/L
[2025-06-25 16:44] LABS: CALCIUM LEVEL 9.1 MG/DL (8.5-10.1); CARBON DIOXIDE LEVEL 25.0 MMOL/L (20-31); CHLORIDE LEVEL 107.0 MMOL/L (98-107); CREATININE FOR GFR 1.36 MG/DL (0.70-1.30); GLOMERULAR FILTRATION RATE 63.0 (>56); IRON (FE) 38.0 UG/DL (65-175); PHOSPHORUS LEVEL 3.0 MG/DL (2.5-4.9); POTASSIUM SERUM 3.6 MMOL/L (3.5-5.1); SODIUM LEVEL 141.0 MMOL/L (136-145)
[2025-06-25 16:46] LABS: VITAMIN B12 LEVEL 287.0 PG/ML (211-911)
[2025-06-25 16:53] LABS: CREATININE, URINE 320.1 MG/DL; MAU/CREAT RATIO 13.1 MCG/MG (0.0-30.0)
[2025-06-25 16:58] LABS: ESTIMATED AVERAGE GLUCOSE 131.0 MG/DL (60-110)
== END ==
LOC: M LAB 14:45
PROVIDERS: ATTEND Student in an Organized Health Care Education/Training Program
DX: D64.9 Anemia, unspecified (principal); G89.29 Other chronic pain; M51.362 Other intervertebral disc degeneration, lumbar region with discogenic back pain and lower extremity pain; E11.3393 Type 2 diabetes mellitus with moderate nonproliferative diabetic retinopathy without macular edema, bilateral; N18.31 Chronic kidney disease, stage 3a

== ENCOUNTER 2025-07-08 12:19 | Outpatient (RCR) | payer OTHER | END 2025-07-14 | LOC: M PT 12:19 | PROVIDERS: ATTEND Student in an Organized Health Care Education/Training Program | DX: M54.50 Low back pain, unspecified (principal); M25.512 Pain in left shoulder; M25.511 Pain in right shoulder ==

== ENCOUNTER → 2025-07-09 | Outpatient (REF) | payer OTHER | LOC: M SFHCPLAZ 14:24 | PROVIDERS: ATTEND Student in an Organized Health Care Education/Training Program | DX: D50.9 Iron deficiency anemia, unspecified (principal) ==

== ENCOUNTER 2025-07-22 20:33 | Emergency (ER) | payer OTHER ==
[2025-07-22 20:38] VITALS: TEMP 96.6
[2025-07-22] MEDS ORDERED: ISOVUE-370 76% 100 ML VIAL As Ordered ONE (20:57)
[2025-07-22 21:06] LABS: BASO # 0.1 10^3/uL (0.0-0.2); BASO % 0.8 % (0.0-1.0); EOS # 0.2 10^3/uL (0.0-0.5); EOS % 3.2 % (0.0-3.0); LYMPH # 1.8 10^3/uL (1.5-5.0); LYMPH % 26.9 % (24.0-44.0); MONO # 0.7 10^3/uL (0.0-0.8); MONO % 10.1 % (2.0-8.0); NEUTROPHILS # 3.9 10^3/uL (1.5-8.5); NEUTROPHILS % 58.8 % (36.0-66.0); PLATELET COUNT, AUTOMATED 293 10^3/uL (150-450)
[2025-07-22 21:08] VITALS: BP 181/84
[2025-07-22 21:20] LABS: INR 0.87
[2025-07-22 21:25] VITALS: BP 167/91
[2025-07-22 22:00] VITALS: BP 167/91
[2025-07-22] MEDS ORDERED: ACET-897 PO (22:17)
[2025-07-22] MEDS ORDERED: FOLI1TAB11 PO (22:18)
[2025-07-22] MEDS ORDERED: FERR325T19 PO (22:25)
[2025-07-22] MEDS ORDERED: HOME MED LIST COMPLETE! XX SCH (22:35)
[2025-07-22 23:09] LABS: CALCIUM LEVEL 9.2 MG/DL (8.5-10.1); CARBON DIOXIDE LEVEL 26 MMOL/L (20-31); CHLORIDE LEVEL 106 MMOL/L (98-107); CK-MB VALUE MASS 4.2 NG/ML (<3.6); CREATININE FOR GFR 1.41 MG/DL (0.70-1.30); GLOMERULAR FILTRATION RATE 60.3 (>56); MAGNESIUM LEVEL 1.9 MG/DL (1.8-2.4); POTASSIUM SERUM 3.6 MMOL/L (3.5-5.1); SODIUM LEVEL 140 MMOL/L (136-145)
[2025-07-22 23:10] LABS: CPK CREATINE PHOSPHOKINASE 193 U/L (46-171); MB/CK RELATIVE INDEX 2.17 (< OR =4)
[2025-07-22 23:12] LABS: ETHYL ALCOHOL (ETHANOL) < 0.003 % (0.000-0.010)
[2025-07-23 00:51] VITALS: BP 128/78; O2SAT 94
== END 2025-07-23 01:02 | disposition home or self-care (01) ==
LOC: M ED 20:33
DX: I16.0 Hypertensive urgency (principal); I10 Essential (primary) hypertension; E07.9 Disorder of thyroid, unspecified; E78.5 Hyperlipidemia, unspecified; K21.9 Gastro-esophageal reflux disease without esophagitis; Z79.82 Long term (current) use of aspirin; Z79.899 Other long term (current) drug therapy
CPT/HCPCS: 70450; 70496; 70498; 70544; 70551; 71045; 80047; 80048; 82077; 82550; 82553; 83735; 84145; 84443; 84484; 85025; 85610; 85730; 86850; 86900; 86901; 93005; 93041; 94760; 99291; Q9967

== ENCOUNTER 2025-08-01 12:39 | Outpatient (RCR) | payer OTHER ==
[~2025-08-01 12:39] MED LIST changes: +ACET-897 PO; -EZET10TA21 PO; +EZET10TA57 PO; +FERR325T19 PO; +FOLI1TAB11 PO; +ZOLP10TA11; -ZOLP10TA2
== END 2025-08-13 ==
LOC: M PT 12:39
PROVIDERS: ATTEND Student in an Organized Health Care Education/Training Program
DX: M54.50 Low back pain, unspecified (principal); M25.512 Pain in left shoulder; M25.511 Pain in right shoulder

== ENCOUNTER → 2025-08-07 | Outpatient (POV) | payer OTHER ==
[~2025-08-07] VITALS: Ht 185.4 cm; Wt 100.0 kg
[2025-08-07 13:35] VITALS: BP 130/92; O2SAT 98
== END ==
LOC: M IRPOV 13:38
PROVIDERS: ATTEND Radiology Diagnostic Radiology
DX: I15.0 Renovascular hypertension (principal); I70.1 Atherosclerosis of renal artery; E27.9 Disorder of adrenal gland, unspecified; Z95.828 Presence of other vascular implants and grafts; Z79.02 Long term (current) use of antithrombotics/antiplatelets; Z86.73 Personal history of transient ischemic attack (TIA), and cerebral infarction without residual deficits

== ENCOUNTER 2025-08-14 09:15 | Outpatient (RCR) | payer OTHER | END 2025-09-13 | LOC: M PT 09:15 | PROVIDERS: ATTEND Student in an Organized Health Care Education/Training Program | DX: M54.50 Low back pain, unspecified (principal); M25.512 Pain in left shoulder; M25.511 Pain in right shoulder ==

== ENCOUNTER → 2025-08-30 | Outpatient (CLI) | payer OTHER | LOC: M RAD 07:57 | PROVIDERS: ATTEND Radiology Diagnostic Radiology | DX: I70.1 Atherosclerosis of renal artery (principal) ==

== ENCOUNTER 2025-09-02 07:08 | Day surgery (SDC) | payer OTHER ==
[~2025-09-02] VITALS: Ht 185.4 cm; Wt 103.0 kg
[2025-09-02 09:00] VITALS: TEMP 97.3
[2025-09-02 09:25] VITALS: BP 118/70; O2SAT 95
== END 2025-09-02 09:27 | disposition home or self-care (01) ==
LOC: M OPP 07:08
PROVIDERS: ATTEND Internal Medicine Gastroenterology
DX: Z12.11 Encounter for screening for malignant neoplasm of colon (principal); K63.5 Polyp of colon; K62.1 Rectal polyp; Z79.02 Long term (current) use of antithrombotics/antiplatelets; Z86.73 Personal history of transient ischemic attack (TIA), and cerebral infarction without residual deficits; G47.30 Sleep apnea, unspecified; Z79.891 Long term (current) use of opiate analgesic; Z79.899 Other long term (current) drug therapy; J44.9 Chronic obstructive pulmonary disease, unspecified; F17.210 Nicotine dependence, cigarettes, uncomplicated

== ENCOUNTER → 2025-09-04 | Outpatient (POV) | payer OTHER ==
[~2025-09-04] VITALS: Ht 185.4 cm; Wt 104.5 kg
[2025-09-04 15:20] VITALS: BP 137/79; O2SAT 97
== END ==
LOC: M IRPOV 15:12
PROVIDERS: ATTEND Registered Nurse School
DX: I15.9 Secondary hypertension, unspecified (principal); Z95.828 Presence of other vascular implants and grafts

== ENCOUNTER → 2025-09-06 | Outpatient (CLI) | payer OTHER ==
[2025-09-06 18:00] LABS: CALCIUM LEVEL 9.4 MG/DL (8.5-10.1); CARBON DIOXIDE LEVEL 30.0 MMOL/L (20-31); CHLORIDE LEVEL 103.0 MMOL/L (98-107); CREATININE FOR GFR 1.51 MG/DL (0.70-1.30); GLOMERULAR FILTRATION RATE 55.2 (>56); POTASSIUM SERUM 3.6 MMOL/L (3.5-5.1); SODIUM LEVEL 140.0 MMOL/L (136-145)
== END ==
LOC: M PLALAB 16:22
PROVIDERS: ATTEND Student in an Organized Health Care Education/Training Program
DX: I10 Essential (primary) hypertension (principal); I1A.0 Resistant hypertension

== ENCOUNTER → 2025-09-19 | Outpatient (CLI) | payer OTHER | LOC: M PLARAD 13:37 | PROVIDERS: ATTEND Neurological Surgery | DX: D43.2 Neoplasm of uncertain behavior of brain, unspecified (principal) ==